=== PATIENT | female | born 1955 | race Caucasian/White ===

== ENCOUNTER 2021-01-14 18:54 | Inpatient (IN) ==
[2021-01-14 20:07] LABS: Basophils # 0.1 K/mcL (0.0-0.2); Basophils % 0.5 %; Eosinophils # 0.7 K/mcL (0.0-0.6); Eosinophils % 4.3 %; Hematocrit 29.3 % (35.3-44.9); Hemoglobin 9.4 g/dL (11.5-15.4); Immature Granulocytes % 0.6 % (0-4); Lymphocytes # 2.4 K/mcL (0.6-4.6); Lymphocytes % 15.6 %; Mean Corpuscular HGB Conc 32.1 g/dL (31.6-35.5); Mean Corpuscular Hemoglobin 30.1 pg (28.0-33.3); Mean Corpuscular Volume 93.9 fL (83.0-100.0); Mean Platelet Volume 10.7 fL (9.4-12.4); Monocytes # 1.1 K/mcL (0.0-1.3); Monocytes % 7.1 %; Platelet Count 153 K/mcL (140-400); Red Blood Count 3.12 M/mcL (3.82-4.97); Red Cell Distribution Width 13.9 % (11.5-14.5); Segmented Neutrophils % 71.9 %; White Blood Count 15.2 K/mcL (4.3-11.1)
[2021-01-14 20:32] LABS: Albumin 3.8 g/dL (3.5-5.7); Albumin/Globulin Ratio 1.1 (1.1-2.2); Bilirubin,Total 0.4 mg/dL (0.3-1.0); Calcium 9.3 mg/dL (8.6-10.3); Globulin 3.4 g/dL (2.4-3.5); Magnesium 2.4 mg/dL (1.6-2.6); Potassium 3.4 mEq/L (3.5-5.1); Total Protein 7.2 g/dL (6.4-8.9)
[2021-01-14 20:57] LABS: Bacteria,Urine Few per hpf (None-Few); Bilirubin,Urine Negative (Negative); Blood,Urine Trace (Negative); Clarity,Urine Turbid (Clear); Color,Urine Light-Yellow (Yellow); Glucose,Urine (UA) 70 mg/dL (Normal); Ketones,Urine Negative (Negative); Leukocyte Esterase,Urine Large (Negative); Mucus,Urine Few per lpf (None-Few); Nitrite,Urine Negative (Negative); Protein,Urine 30 mg/dL (Neg-Trace); Specific Gravity,Urine 1.012 (1.010-1.025); Squamous Epithelial Cell,Urine Few per hpf (None-Few); Urobilinogen,Urine Normal (Normal); WBC,Urine TNTC per hpf (0-3)
[2021-01-14] MEDS ORDERED: 0.9 % Sodium Chloride 1,000 ML IVC ONE (21:31)
[2021-01-14] MEDS ORDERED: cefTRIAXone 1,000 MG in Water for inj. (sterile) 10 ML IVP ONE (21:32)
[2021-01-14] MEDS ORDERED: Azithromycin 250 MG TABLET PO ONE (21:32)
[2021-01-14 21:51] LABS: Adenovirus Not Detected (Not Detect); Bordetella Pertussis Not Detected (Not Detect); Chlamydophila pneumoniae Not Detected (Not Detect); Coronavirus 229E Not Detected (Not Detect); Coronavirus HKU1 Not Detected (Not Detect); Coronavirus NL63 Not Detected (Not Detect); Coronavirus OC43 Not Detected (Not Detect); Human Metapneumovirus Not Detected (Not Detect); Human Rhinovirus/Enterovirus Not Detected (Not Detect); Influenza A Subtype 2009 H1 Not Detected (Not Detect); Influenza B Not Detected (Not Detect); Mycoplasma pneumoniae Not Detected (Not Detect); Parainfluenza Virus 1 Not Detected (Not Detect); Parainfluenza Virus 2 Not Detected (Not Detect); Parainfluenza Virus 3 Not Detected (Not Detect); Parainfluenza Virus 4 Not Detected (Not Detect); Respiratory Syncytial Virus Not Detected (Not Detect); SARS-CoV-2 Not Detected (Not Detect)
[2021-01-15] MEDS ORDERED: *HR* FentaNYL (PF) 100 MCG/2 ML VIAL IVP ONE (01:23)
[2021-01-15] MEDS ORDERED: Naloxone 0.4 MG/ML INJ IVP PRN (04:43)
[2021-01-15] MEDS ORDERED: Acetaminophen 325 MG TABLET PO PRN (04:54)
[2021-01-15] MEDS ORDERED: D5% in Water 1,000 ML IVC PRN (04:58)
[2021-01-15] MEDS ORDERED: *HR* Dextrose 50 % in Water (Vial) 50 ML VIAL IVP PRN (04:58)
[2021-01-15] MEDS ORDERED: Dextrose Gel 15 GM/37.5 ML TUBE PO PRN ×2 (04:58)
[2021-01-15] MEDS ORDERED: Perflutren Lipid Microsphere 1.3 ML in 0.9 % Sodium Chloride 8.7 ML IVP PRN (05:14)
[2021-01-15] MEDS: *HR* Heparin 5,000 UNIT/ML VIAL SQ SCH ×3 (06:15→21:44)
[2021-01-15] MEDS: Insulin LISPRO 300 UNITS/3 ML VIAL SUBQ SCH ×7 (07:32→20:37)
[2021-01-15] MEDS: Insulin DETEMIR 100 UNIT/ML X5UNITS SUBQ SCH (07:56)
[2021-01-15 08:11] LABS: Basophils # 0.1 K/mcL (0.0-0.2); Basophils % 0.5 %; Eosinophils # 0.7 K/mcL (0.0-0.6); Eosinophils % 4.8 %; Hemoglobin 8.8 g/dL (11.5-15.4); Immature Granulocytes % 0.6 % (0-4); Lymphocytes # 2.6 K/mcL (0.6-4.6); Lymphocytes % 18.7 %; Mean Corpuscular HGB Conc 31.4 g/dL (31.6-35.5); Mean Corpuscular Volume 95.6 fL (83.0-100.0); Mean Platelet Volume 10.5 fL (9.4-12.4); Neutrophils # 9.6 K/mcL (1.6-8.9); Platelet Count 144 K/mcL (140-400); Red Blood Count 2.93 M/mcL (3.82-4.97); Red Cell Distribution Width 14.1 % (11.5-14.5); Segmented Neutrophils % 68.4 %; White Blood Count 14.1 K/mcL (4.3-11.1)
[2021-01-15 08:29] LABS: Potassium 2.9 mEq/L (3.5-5.1)
[2021-01-15 08:30] LABS: Magnesium 2.4 mg/dL (1.6-2.6); Phosphorous 7.5 mg/dL (2.7-4.5)
[2021-01-15 11:14] LABS: Hepatitis B Surface Antibody 5.22 mIU/mL
[2021-01-15 11:25] LABS: Hepatitis B Surface Antigen Nonreactive (Nonreactive)
[2021-01-15 12:02] LABS: Protein/Creatinine Ratio,Urine 1.47 mg/mg (0.00-0.20); Sodium, Urine 66.8 mEq/L
[2021-01-15] MEDS ORDERED: 0.9 % Sodium Chloride 250 ML IVC PRN (12:46)
[2021-01-15] MEDS ORDERED: 0.9 % Sodium Chloride 1,000 ML PRIME SCH (13:00)
[2021-01-15] MEDS ORDERED: Potassium Chloride 40 MEQ, Lidocaine 1% 2 ML in 0.9 % Sodium Chloride 500 ML IVPB ONE (13:20)
[2021-01-15] MEDS ORDERED: Ipratropium/Albuterol Neb 3 ML IH PRN (15:16)
[2021-01-15] MEDS: carvediloL 25 MG TABLET PO SCH (17:30)
[2021-01-15 18:05] LABS: Calcium 8.9 mg/dL (8.6-10.3); Potassium 3.2 mEq/L (3.5-5.1)
[2021-01-15] MEDS ORDERED: Potassium Chloride 20 MEQ, Lidocaine 1% 2 ML in 0.9 % Sodium Chloride 250 ML IVPB ONE (19:34)
[2021-01-15] MEDS: cefTRIAXone 1,000 MG in Water for inj. (sterile) 10 ML IVP SCH (20:02)
[2021-01-15] MEDS ORDERED: Famotidine 20 MG TABLET PO SCH ×2 (21:00)
[2021-01-15] MEDS ORDERED: Gabapentin 300 MG CAPSULE PO SCH (21:00)
[2021-01-16 05:29] LABS: Hematocrit 27.4 % (35.3-44.9); Hemoglobin 8.4 g/dL (11.5-15.4); Mean Corpuscular HGB Conc 30.7 g/dL (31.6-35.5); Mean Corpuscular Hemoglobin 30.1 pg (28.0-33.3); Mean Corpuscular Volume 98.2 fL (83.0-100.0); Mean Platelet Volume 10.4 fL (9.4-12.4); Platelet Count 138 K/mcL (140-400); Red Blood Count 2.79 M/mcL (3.82-4.97); Red Cell Distribution Width 14.1 % (11.5-14.5)
[2021-01-16 05:40] LABS: Estimated Average Glucose 154 mg/dl
[2021-01-16 05:48] LABS: Calcium 8.6 mg/dL (8.6-10.3); Potassium 3.7 mEq/L (3.5-5.1)
[2021-01-16 05:50] LABS: Magnesium 2.3 mg/dL (1.6-2.6); Phosphorous 4.4 mg/dL (2.7-4.5)
[2021-01-16] MEDS: *HR* Heparin 5,000 UNIT/ML VIAL SQ SCH ×3 (05:53→21:25)
[2021-01-16] MEDS ORDERED: 0.9 % Sodium Chloride 250 ML IVC PRN (07:29)
[2021-01-16] MEDS ORDERED: *HR* Heparin 10,000 UNIT/10 ML VIAL IV PRN (07:29)
[2021-01-16] MEDS: Insulin DETEMIR 100 UNIT/ML X5UNITS SUBQ SCH ×3 (07:30→07:44)
[2021-01-16] MEDS ORDERED: 0.9 % Sodium Chloride 1,000 ML PRIME SCH (07:30)
[2021-01-16] MEDS: allopurinoL 300 MG TABLET PO SCH (07:35)
[2021-01-16] MEDS: Aspirin Enteric Coated 81 MG Tablet PO SCH (07:35)
[2021-01-16] MEDS: calcitrioL 0.25 MCG CAPSULE PO SCH (07:35)
[2021-01-16] MEDS: Cholecalciferol (D-3) 1,000 UNIT (25MCG) TABLET PO SCH (07:35)
[2021-01-16] MEDS: Insulin LISPRO 300 UNITS/3 ML VIAL SUBQ SCH ×7 (07:36→21:26)
[2021-01-16] MEDS: carvediloL 25 MG TABLET PO SCH ×2 (08:30→17:13)
[2021-01-16] MEDS ORDERED: Gabapentin 300 MG CAPSULE PO SCH (09:00)
[2021-01-16 09:32] LABS: Folate 9.6 ng/mL (3.0-16.0)
[2021-01-16] MEDS: NIFEdipine XL (24 HR) 30 MG TAB.ER.24 PO SCH (12:18)
[2021-01-16] MEDS ORDERED: Cyanocobalamin (B-12) 1,000 MCG/ML VIAL SQ ONE (16:10)
[2021-01-16] MEDS: Gabapentin 300 MG CAPSULE PO SCH (21:23)
[2021-01-16] MEDS: cefTRIAXone 1,000 MG in Water for inj. (sterile) 10 ML IVP SCH (21:24)
[2021-01-17] MEDS: *HR* Heparin 5,000 UNIT/ML VIAL SQ SCH ×3 (05:26→21:12)
[2021-01-17 06:06] LABS: Hematocrit 29.7 % (35.3-44.9); Hemoglobin 9.2 g/dL (11.5-15.4); Mean Corpuscular Hemoglobin 30.7 pg (28.0-33.3); Mean Platelet Volume 10.6 fL (9.4-12.4); Platelet Count 153 K/mcL (140-400); Red Cell Distribution Width 14.2 % (11.5-14.5); White Blood Count 12.5 K/mcL (4.3-11.1)
[2021-01-17 06:06] LABS: VBG HCO3 32 mEq/L (21-27); VBG PCO2 54 mmHg (41-51); VBG PH 7.38 pH Units (7.32-7.42); VBG PO2 85 mmHg (25-50)
[2021-01-17 06:31] LABS: Calcium 9.2 mg/dL (8.6-10.3); Magnesium 2.1 mg/dL (1.6-2.6); Phosphorous 4.3 mg/dL (2.7-4.5); Potassium 3.6 mEq/L (3.5-5.1)
[2021-01-17] MEDS ORDERED: 0.9 % Sodium Chloride 250 ML IVC PRN (08:15)
[2021-01-17] MEDS ORDERED: *HR* Heparin 10,000 UNIT/10 ML VIAL IV PRN (08:15)
[2021-01-17] MEDS: allopurinoL 300 MG TABLET PO SCH (08:47)
[2021-01-17] MEDS: calcitrioL 0.25 MCG CAPSULE PO SCH (08:47)
[2021-01-17] MEDS: Cyanocobalamin (B-12) 1,000 MCG TABLET PO SCH (08:47)
[2021-01-17] MEDS: Aspirin Enteric Coated 81 MG Tablet PO SCH (08:47)
[2021-01-17] MEDS: Insulin DETEMIR 100 UNIT/ML X5UNITS SUBQ SCH (08:48)
[2021-01-17] MEDS: Insulin LISPRO 300 UNITS/3 ML VIAL SUBQ SCH ×7 (08:48→21:03)
[2021-01-17] MEDS: Gabapentin 300 MG CAPSULE PO SCH ×2 (08:48→21:11)
[2021-01-17] MEDS: Cholecalciferol (D-3) 1,000 UNIT (25MCG) TABLET PO SCH (08:48)
[2021-01-17] MEDS: carvediloL 25 MG TABLET PO SCH ×2 (13:27→16:25)
[2021-01-17] MEDS ORDERED: Pantoprazole 40 MG VIAL IVP ONE (14:21)
[2021-01-17] MEDS: NIFEdipine XL (24 HR) 30 MG TAB.ER.24 PO SCH (14:47)
[2021-01-17] MEDS: Ondansetron 4 MG/2 ML VIAL IVP PRN (16:25)
[2021-01-17] MEDS: cefTRIAXone 1,000 MG in Water for inj. (sterile) 10 ML IVP SCH (21:11)
[2021-01-18] MEDS: Ondansetron 4 MG/2 ML VIAL IVP PRN ×2 (04:40→20:36)
[2021-01-18 05:13] LABS: Hematocrit 30.5 % (35.3-44.9); Hemoglobin 9.3 g/dL (11.5-15.4); Mean Corpuscular HGB Conc 30.5 g/dL (31.6-35.5); Mean Corpuscular Hemoglobin 29.8 pg (28.0-33.3); Mean Corpuscular Volume 97.8 fL (83.0-100.0); Mean Platelet Volume 10.3 fL (9.4-12.4); Platelet Count 145 K/mcL (140-400); Red Blood Count 3.12 M/mcL (3.82-4.97); Red Cell Distribution Width 13.9 % (11.5-14.5); White Blood Count 19.4 K/mcL (4.3-11.1)
[2021-01-18 05:50] LABS: Calcium 9.1 mg/dL (8.6-10.3); Magnesium 1.9 mg/dL (1.6-2.6); Potassium 3.5 mEq/L (3.5-5.1)
[2021-01-18] MEDS: *HR* Heparin 5,000 UNIT/ML VIAL SQ SCH ×3 (06:26→20:36)
[2021-01-18] MEDS: NIFEdipine XL (24 HR) 30 MG TAB.ER.24 PO SCH (08:23)
[2021-01-18] MEDS: Cyanocobalamin (B-12) 1,000 MCG TABLET PO SCH (08:23)
[2021-01-18] MEDS: Cholecalciferol (D-3) 1,000 UNIT (25MCG) TABLET PO SCH (08:23)
[2021-01-18] MEDS: Aspirin Enteric Coated 81 MG Tablet PO SCH (08:23)
[2021-01-18] MEDS: Lactobacillus 1 EACH CAP.SPRINK PO SCH ×2 (08:24→20:23)
[2021-01-18] MEDS: allopurinoL 300 MG TABLET PO SCH (08:24)
[2021-01-18] MEDS: Gabapentin 300 MG CAPSULE PO SCH ×2 (08:24→20:23)
[2021-01-18] MEDS: Insulin LISPRO 300 UNITS/3 ML VIAL SUBQ SCH ×7 (08:24→20:34)
[2021-01-18] MEDS: calcitrioL 0.25 MCG CAPSULE PO SCH (08:24)
[2021-01-18] MEDS: carvediloL 25 MG TABLET PO SCH ×2 (08:24→17:55)
[2021-01-18] MEDS: Insulin DETEMIR 100 UNIT/ML X5UNITS SUBQ SCH (08:30)
[2021-01-18] MEDS: Doxycycline 100 MG in 0.9 % Sodium Chloride Mini Bag 100 ML IVPB SCH ×2 (11:25→20:23)
[2021-01-18] MEDS: Piperacillin/Tazobactam 3.375 GM in 0.9 % Sodium Chloride Mini Bag 100 ML IVPB SCH ×2 (13:36→20:24)
[2021-01-18] MEDS ORDERED: Piperacillin/Tazobactam 3.375 GM in 0.9 % Sodium Chloride Mini Bag 100 ML IVPB SCH (16:00)
[2021-01-18] MEDS: D5% in 0.9% NACL 1,000 ML IVC SCH (17:54)
[2021-01-19] MEDS: *HR* Heparin 5,000 UNIT/ML VIAL SQ SCH ×3 (03:45→20:30)
[2021-01-19 04:05] LABS: Albumin 3.4 g/dL (3.5-5.7); Albumin/Globulin Ratio 1.1 (1.1-2.2); Bilirubin,Direct 0.1 mg/dL (0.0-0.2); Bilirubin,Indirect 0.3 mg/dL (0.0-1.0); Bilirubin,Total 0.4 mg/dL (0.3-1.0); Calcium 8.8 mg/dL (8.6-10.3); Magnesium 1.8 mg/dL (1.6-2.6); Potassium 3.4 mEq/L (3.5-5.1); Total Protein 6.4 g/dL (6.4-8.9)
[2021-01-19 04:16] LABS: Hematocrit 28.3 % (35.3-44.9); Hemoglobin 8.6 g/dL (11.5-15.4); Mean Corpuscular HGB Conc 30.4 g/dL (31.6-35.5); Mean Corpuscular Hemoglobin 29.7 pg (28.0-33.3); Mean Corpuscular Volume 97.6 fL (83.0-100.0); Mean Platelet Volume 10.6 fL (9.4-12.4); Platelet Count 130 K/mcL (140-400); Red Cell Distribution Width 13.8 % (11.5-14.5); White Blood Count 13.7 K/mcL (4.3-11.1)
[2021-01-19] MEDS ORDERED: Dexamethasone 4 MG/ML VIAL ONE (07:47)
[2021-01-19] MEDS ORDERED: Lidocaine -MPF 2% 2 ML VIAL ONE (07:47)
[2021-01-19] MEDS ORDERED: Lidocaine -MPF 4% 5 ML AMPUL ONE (07:47)
[2021-01-19] MEDS ORDERED: Ondansetron 4 MG/2 ML VIAL ONE (07:47)
[2021-01-19] MEDS ORDERED: *HR* FentaNYL (PF) 100 MCG/2 ML VIAL ONE (07:48)
[2021-01-19] MEDS ORDERED: *HR* Propofol 200 MG/20 ML VIAL IVP ONE (07:48)
[2021-01-19] MEDS ORDERED: *HR* PHENYLEPHRINE 1,000 MCG/10 ML SYRINGE IVP ONE (07:48)
[2021-01-19] MEDS: Insulin LISPRO 300 UNITS/3 ML VIAL SUBQ SCH ×7 (07:49→22:25)
[2021-01-19] MEDS: Insulin DETEMIR 100 UNIT/ML X5UNITS SUBQ SCH (07:52)
[2021-01-19] MEDS: Cyanocobalamin (B-12) 1,000 MCG TABLET PO SCH (08:23)
[2021-01-19] MEDS: Gabapentin 300 MG CAPSULE PO SCH ×2 (08:24→20:30)
[2021-01-19] MEDS: calcitrioL 0.25 MCG CAPSULE PO SCH (08:24)
[2021-01-19] MEDS: allopurinoL 300 MG TABLET PO SCH (09:00)
[2021-01-19] MEDS: D5% in 0.9% NACL 1,000 ML IVC SCH (09:00)
[2021-01-19] MEDS: NIFEdipine XL (24 HR) 30 MG TAB.ER.24 PO SCH (09:00)
[2021-01-19] MEDS: carvediloL 25 MG TABLET PO SCH ×2 (10:05→17:51)
[2021-01-19] MEDS: Lactobacillus 1 EACH CAP.SPRINK PO SCH ×2 (10:05→20:31)
[2021-01-19] MEDS: Doxycycline 100 MG in 0.9 % Sodium Chloride Mini Bag 100 ML IVPB SCH ×2 (10:38→20:32)
[2021-01-19] MEDS ORDERED: *HR* Metoprolol 5 MG/5 ML VIAL IVP ONE (11:02)
[2021-01-19] MEDS: Piperacillin/Tazobactam 3.375 GM in 0.9 % Sodium Chloride Mini Bag 100 ML IVPB SCH ×2 (11:45→22:28)
[2021-01-19] MEDS ORDERED: EPHEDrine 50 MG/ML VIAL ONE (13:51)
[2021-01-19] MEDS: Ondansetron 4 MG/2 ML VIAL IVP PRN (15:06)
[2021-01-19] MEDS ORDERED: Acetaminophen 325 MG TABLET PO PRN (15:27)
[2021-01-19] MEDS ORDERED: Naloxone 0.4 MG/ML INJ IVP PRN (15:27)
[2021-01-19] MEDS ORDERED: Dextrose Gel 15 GM/37.5 ML TUBE PO PRN ×2 (15:27)
[2021-01-19] MEDS ORDERED: 0.9 % Sodium Chloride 250 ML IVC PRN (15:27)
[2021-01-19] MEDS ORDERED: Ondansetron 4 MG/2 ML VIAL IVP PRN (15:27)
[2021-01-19] MEDS ORDERED: 0.9 % Sodium Chloride 1,000 ML PRIME SCH (15:27)
[2021-01-19] MEDS ORDERED: D5% in Water 1,000 ML IVC PRN (15:27)
[2021-01-19] MEDS ORDERED: Ipratropium/Albuterol Neb 3 ML IH PRN (15:27)
[2021-01-19] MEDS ORDERED: *HR* Dextrose 50 % in Water (Vial) 50 ML VIAL IVP PRN (15:27)
[2021-01-19] MEDS ORDERED: D5% in 0.9% NACL 1,000 ML IVC SCH (15:27)
[2021-01-19] MEDS ORDERED: *HR* Heparin 10,000 UNIT/10 ML VIAL IV PRN (15:27)
[2021-01-19] MEDS ORDERED: *HR* Promethazine 25 MG/ML VIAL IM ONE (15:34)
[2021-01-20 03:33] LABS: Hematocrit 27.8 % (35.3-44.9); Hemoglobin 8.5 g/dL (11.5-15.4); Mean Corpuscular HGB Conc 30.6 g/dL (31.6-35.5); Mean Corpuscular Hemoglobin 29.8 pg (28.0-33.3); Mean Corpuscular Volume 97.5 fL (83.0-100.0); Mean Platelet Volume 10.9 fL (9.4-12.4); Platelet Count 115 K/mcL (140-400); Red Blood Count 2.85 M/mcL (3.82-4.97); Red Cell Distribution Width 13.6 % (11.5-14.5)
[2021-01-20 03:56] LABS: Calcium 8.3 mg/dL (8.6-10.3); Magnesium 1.8 mg/dL (1.6-2.6); Phosphorous 5.8 mg/dL (2.7-4.5); Potassium 3.5 mEq/L (3.5-5.1)
[2021-01-20] MEDS: *HR* Heparin 5,000 UNIT/ML VIAL SQ SCH ×3 (05:02→21:21)
[2021-01-20] MEDS ORDERED: 0.9 % Sodium Chloride 250 ML IVC PRN (08:08)
[2021-01-20] MEDS ORDERED: 0.9 % Sodium Chloride 1,000 ML PRIME SCH (08:15)
[2021-01-20] MEDS ORDERED: D5% in Water 1,000 ML IVC PRN (08:17)
[2021-01-20] MEDS: Insulin LISPRO 300 UNITS/3 ML VIAL SUBQ SCH ×7 (08:52→20:59)
[2021-01-20] MEDS: Lactobacillus 1 EACH CAP.SPRINK PO SCH ×2 (08:54→21:21)
[2021-01-20] MEDS: Cyanocobalamin (B-12) 1,000 MCG TABLET PO SCH (08:54)
[2021-01-20] MEDS: NIFEdipine XL (24 HR) 30 MG TAB.ER.24 PO SCH (08:54)
[2021-01-20] MEDS: Gabapentin 300 MG CAPSULE PO SCH (08:54)
[2021-01-20] MEDS: calcitrioL 0.25 MCG CAPSULE PO SCH (08:55)
[2021-01-20] MEDS: carvediloL 25 MG TABLET PO SCH ×2 (08:55→17:31)
[2021-01-20] MEDS ORDERED: allopurinoL 300 MG TABLET PO SCH (09:00)
[2021-01-20] MEDS: Doxycycline 100 MG in 0.9 % Sodium Chloride Mini Bag 100 ML IVPB SCH ×2 (09:07→21:21)
[2021-01-20] MEDS: Insulin DETEMIR 100 UNIT/ML X5UNITS SUBQ SCH (09:10)
[2021-01-20] MEDS: Piperacillin/Tazobactam 3.375 GM in 0.9 % Sodium Chloride Mini Bag 100 ML IVPB SCH (10:48)
[2021-01-20] MEDS ORDERED: *HR* Promethazine 25 MG/ML VIAL IM ONE (14:57)
[2021-01-21] MEDS: Piperacillin/Tazobactam 3.375 GM in 0.9 % Sodium Chloride Mini Bag 100 ML IVPB SCH ×2 (00:19→10:45)
[2021-01-21 05:28] LABS: Hematocrit 25.7 % (35.3-44.9); Hemoglobin 8.1 g/dL (11.5-15.4); Mean Corpuscular HGB Conc 31.5 g/dL (31.6-35.5); Mean Corpuscular Hemoglobin 30.9 pg (28.0-33.3); Mean Corpuscular Volume 98.1 fL (83.0-100.0); Mean Platelet Volume 11.4 fL (9.4-12.4); Platelet Count 128 K/mcL (140-400); Red Blood Count 2.62 M/mcL (3.82-4.97); Red Cell Distribution Width 13.9 % (11.5-14.5); White Blood Count 12.5 K/mcL (4.3-11.1)
[2021-01-21 05:37] LABS: Calcium 8.4 mg/dL (8.6-10.3); Magnesium 1.8 mg/dL (1.6-2.6); Phosphorous 3.5 mg/dL (2.7-4.5); Potassium 3.2 mEq/L (3.5-5.1)
[2021-01-21] MEDS: *HR* Heparin 5,000 UNIT/ML VIAL SQ SCH ×2 (05:51→15:33)
[2021-01-21] MEDS ORDERED: Potassium Chloride 20 MEQ, Lidocaine 1% 2 ML in 0.9 % Sodium Chloride 250 ML IVPB ONE (07:17)
[2021-01-21] MEDS ORDERED: carvediloL 25 MG TABLET PO SCH (08:00)
[2021-01-21] MEDS: Insulin LISPRO 300 UNITS/3 ML VIAL SUBQ SCH ×4 (08:09→12:07)
[2021-01-21] MEDS: Insulin DETEMIR 100 UNIT/ML X5UNITS SUBQ SCH (08:10)
[2021-01-21] MEDS ORDERED: allopurinoL 100 MG TABLET PO SCH (09:00)
[2021-01-21] MEDS ORDERED: Gabapentin 300 MG CAPSULE PO SCH (09:00)
[2021-01-21] MEDS: Doxycycline 100 MG in 0.9 % Sodium Chloride Mini Bag 100 ML IVPB SCH (09:40)
[2021-01-21] MEDS: Cyanocobalamin (B-12) 1,000 MCG TABLET PO SCH (09:47)
[2021-01-21] MEDS: Lactobacillus 1 EACH CAP.SPRINK PO SCH (09:47)
[2021-01-21] MEDS: NIFEdipine XL (24 HR) 30 MG TAB.ER.24 PO SCH (09:47)
[2021-01-21] MEDS: calcitrioL 0.25 MCG CAPSULE PO SCH (09:47)
[2021-01-21 11:14] VITALS: BP 124/66
[2021-01-21] MEDS ORDERED: Insulin DETEMIR 100 UNIT/ML X5UNITS SUBQ SCH (21:00)
== END 2021-01-21 16:39 | disposition home health service (06) | DRG 951 ==
LOC: EMEROOARM 18:54 → 2ANU 18:54 → SUATTDRO 01-15 00:18 → 2ANU 01-15 01:45
PROVIDERS: ADMIT Internal Medicine; ATTEND Pharmacist

== ENCOUNTER 2021-02-09 22:52 | Observation (INO) ==
[2021-02-10] MEDS ORDERED: Naloxone 0.4 MG/ML INJ IVP PRN (03:07)
[2021-02-10] MEDS ORDERED: Melatonin 3 MG TABLET PO PRN (03:07)
[2021-02-10 05:10] LABS: Basophils # 0.1 K/mcL (0.0-0.2); Basophils % 0.6 %; Eosinophils # 0.4 K/mcL (0.0-0.6); Eosinophils % 4.1 %; Hematocrit 24.9 % (35.3-44.9); Hemoglobin 7.5 g/dL (11.5-15.4); Immature Granulocytes % 1.6 % (0-4); Lymphocytes # 1.8 K/mcL (0.6-4.6); Lymphocytes % 16.9 %; Mean Corpuscular HGB Conc 30.1 g/dL (31.6-35.5); Mean Corpuscular Hemoglobin 30.4 pg (28.0-33.3); Mean Corpuscular Volume 100.8 fL (83.0-100.0); Mean Platelet Volume 9.9 fL (9.4-12.4); Monocytes # 0.9 K/mcL (0.0-1.3); Monocytes % 8.9 %; Neutrophils # 7.1 K/mcL (1.6-8.9); Platelet Count 150 K/mcL (140-400); Red Blood Count 2.47 M/mcL (3.82-4.97); Red Cell Distribution Width 14.9 % (11.5-14.5); Segmented Neutrophils % 67.9 %; White Blood Count 10.4 K/mcL (4.3-11.1)
[2021-02-10 05:18] LABS: INR 1.2; Prothrombin Time 13.9 Seconds (9.4-12.1)
[2021-02-10 05:21] LABS: Activated Partial Thrombo Time 25.3 Seconds (26.0-36.0)
[2021-02-10 05:30] LABS: Alanine Aminotransferase 14 Units/L (7-52); Albumin 3.3 g/dL (3.5-5.7); Albumin/Globulin Ratio 1.2 (1.1-2.2); Alkaline Phosphatase 113 Units/L (34-104); Aspartate Amino Transferase 12 Units/L (13-39); BUN/Creatinine Ratio 5 (6-26); Bilirubin,Total 0.4 mg/dL (0.3-1.0); Blood Urea Nitrogen 15 mg/dL (8-23); Calcium 8.4 mg/dL (8.6-10.3); Carbon Dioxide 30 mEq/L (23-29); Chloride 99 mEq/L (98-107); Globulin 2.8 g/dL (2.4-3.5); Glucose 232 mg/dL (70-105); Magnesium 1.9 mg/dL (1.6-2.6); Osmolality,Calculated 292 (280-300); Phosphorous 3.5 mg/dL (2.7-4.5); Potassium 3.4 mEq/L (3.5-5.1); Sodium 137 mEq/L (136-145); Total Protein 6.1 g/dL (6.4-8.9); Troponin I < 0.03 ng/mL (< 0.04); eGFR For African Americans 17 (> 60); eGFR For Non-African Americans 14 (> 60)
[2021-02-10] MEDS ORDERED: *HR* Dextrose 50 % in Water (Vial) 50 ML VIAL IVP PRN (05:55)
[2021-02-10] MEDS ORDERED: Dextrose Gel 15 GM/37.5 ML TUBE PO PRN ×2 (05:55)
[2021-02-10] MEDS ORDERED: D5% in Water 1,000 ML IVC PRN (05:55)
[2021-02-10] MEDS ORDERED: Potassium Chloride 40 MEQ, Lidocaine 1% 2 ML in 0.9 % Sodium Chloride 500 ML IVPB ONE (06:00)
[2021-02-10] MEDS: Pantoprazole 40 MG VIAL IVP SCH ×2 (06:38→16:54)
[2021-02-10] MEDS ORDERED: 0.9 % Sodium Chloride 1,000 ML ONE (07:33)
[2021-02-10] MEDS: Insulin LISPRO 300 UNITS/3 ML VIAL SUBQ SCH ×3 (07:34→17:37)
[2021-02-10] MEDS ORDERED: 0.9 % Sodium Chloride 250 ML IVC PRN (08:52)
[2021-02-10] MEDS ORDERED: 0.9 % Sodium Chloride 1,000 ML PRIME SCH (09:00)
[2021-02-10] MEDS ORDERED: cefTRIAXone 1,000 MG in Water for inj. (sterile) 10 ML IVP SCH (09:00)
[2021-02-10 09:53] LABS: Hepatitis B Surface Antibody 3.35 mIU/mL
[2021-02-10 10:05] LABS: Hepatitis B Surface Antigen Nonreactive (Nonreactive)
[2021-02-10] MEDS: Ondansetron 4 MG/2 ML VIAL IVP PRN ×2 (12:42→21:23)
[2021-02-10] MEDS ORDERED: SODIUM CHLORIDE/NAHCO3/KCL/PEG 4,000 ML SOLN.RECON PO ONE (17:00)
[2021-02-11] MEDS ORDERED: *HR* Propofol 500 MG/50 ML BOTTLE IVP ONE (01:09)
[2021-02-11] MEDS ORDERED: Lidocaine -MPF 2% 5 ML VIAL SQ ONE (01:09)
[2021-02-11] MEDS: Insulin LISPRO 300 UNITS/3 ML VIAL SUBQ SCH ×5 (05:43→20:39)
[2021-02-11] MEDS: Pantoprazole 40 MG VIAL IVP SCH ×2 (05:47→17:52)
[2021-02-11 06:27] LABS: Hematocrit 26.6 % (35.3-44.9); Hemoglobin 7.9 g/dL (11.5-15.4); Mean Corpuscular HGB Conc 29.7 g/dL (31.6-35.5); Mean Corpuscular Hemoglobin 29.8 pg (28.0-33.3); Mean Corpuscular Volume 100.4 fL (83.0-100.0); Platelet Count 141 K/mcL (140-400); Red Blood Count 2.65 M/mcL (3.82-4.97); Red Cell Distribution Width 14.7 % (11.5-14.5); White Blood Count 10.6 K/mcL (4.3-11.1)
[2021-02-11 06:49] LABS: Calcium 8.6 mg/dL (8.6-10.3); Potassium 4.1 mEq/L (3.5-5.1)
[2021-02-11] MEDS: cefTRIAXone 1,000 MG in Water for inj. (sterile) 10 ML IVP SCH (15:12)
[2021-02-11] MEDS: Ondansetron 4 MG/2 ML VIAL IVP PRN (20:33)
[2021-02-11] MEDS: Insulin DETEMIR 100 UNIT/ML X5UNITS SUBQ SCH (20:34)
[2021-02-11] MEDS: carvediloL 6.25 MG TABLET PO SCH (20:39)
[2021-02-12 00:52] LABS: Basophils # 0.1 K/mcL (0.0-0.2); Basophils % 0.6 %; Eosinophils # 0.5 K/mcL (0.0-0.6); Eosinophils % 4.1 %; Hematocrit 26.9 % (35.3-44.9); Hemoglobin 8.2 g/dL (11.5-15.4); Immature Granulocytes % 0.9 % (0-4); Lymphocytes % 17.8 %; Mean Corpuscular HGB Conc 30.5 g/dL (31.6-35.5); Mean Corpuscular Hemoglobin 30.7 pg (28.0-33.3); Mean Corpuscular Volume 100.7 fL (83.0-100.0); Mean Platelet Volume 10.4 fL (9.4-12.4); Monocytes % 8.6 %; Neutrophils # 7.5 K/mcL (1.6-8.9); Platelet Count 131 K/mcL (140-400); Red Blood Count 2.67 M/mcL (3.82-4.97); Red Cell Distribution Width 14.6 % (11.5-14.5); White Blood Count 11.1 K/mcL (4.3-11.1)
[2021-02-12 01:05] LABS: Calcium 8.6 mg/dL (8.6-10.3); Potassium 3.4 mEq/L (3.5-5.1)
[2021-02-12] MEDS: Pantoprazole 40 MG VIAL IVP SCH (05:12)
[2021-02-12] MEDS: Ondansetron 4 MG/2 ML VIAL IVP PRN ×2 (05:13→14:27)
[2021-02-12] MEDS: Insulin LISPRO 300 UNITS/3 ML VIAL SUBQ SCH ×3 (08:10→20:09)
[2021-02-12] MEDS: calcitrioL 0.25 MCG CAPSULE PO SCH (08:11)
[2021-02-12] MEDS: Gabapentin 300 MG CAPSULE PO SCH (08:11)
[2021-02-12] MEDS: allopurinoL 100 MG TABLET PO SCH (08:11)
[2021-02-12] MEDS: Cholecalciferol (D-3) 1,000 UNIT (25MCG) TABLET PO SCH (08:11)
[2021-02-12] MEDS: Aspirin Enteric Coated 81 MG Tablet PO SCH (08:11)
[2021-02-12] MEDS: carvediloL 6.25 MG TABLET PO SCH (08:12)
[2021-02-12] MEDS: NIFEdipine XL (24 HR) 30 MG TAB.ER.24 PO SCH (08:12)
[2021-02-12] MEDS ORDERED: Tiotropium 10 INH DOSE IH SCH (09:00)
[2021-02-12] MEDS: Tiotropium 10 INH DOSE IH SCH (10:52)
[2021-02-12] MEDS: cefTRIAXone 1,000 MG in Water for inj. (sterile) 10 ML IVP SCH (14:26)
[2021-02-12] MEDS ORDERED: Bismuth Subsalicylate 120 ML ORAL SUSPENSION PO ONE (19:57)
[2021-02-12] MEDS: Insulin DETEMIR 100 UNIT/ML X5UNITS SUBQ SCH (20:10)
[2021-02-13 01:32] LABS: Hematocrit 23.9 % (35.3-44.9); Hemoglobin 7.2 g/dL (11.5-15.4); Mean Corpuscular HGB Conc 30.1 g/dL (31.6-35.5); Mean Corpuscular Hemoglobin 30.3 pg (28.0-33.3); Mean Corpuscular Volume 100.4 fL (83.0-100.0); Mean Platelet Volume 10.8 fL (9.4-12.4); Platelet Count 112 K/mcL (140-400); Red Blood Count 2.38 M/mcL (3.82-4.97); Red Cell Distribution Width 14.6 % (11.5-14.5); White Blood Count 10.8 K/mcL (4.3-11.1)
[2021-02-13 01:56] LABS: Calcium 8.3 mg/dL (8.6-10.3); Potassium 3.4 mEq/L (3.5-5.1)
[2021-02-13] MEDS: Pantoprazole 40 MG VIAL IVP SCH ×2 (04:28→16:47)
[2021-02-13] MEDS: Tiotropium 10 INH DOSE IH SCH (07:43)
[2021-02-13] MEDS: Insulin LISPRO 300 UNITS/3 ML VIAL SUBQ SCH ×3 (09:02→16:46)
[2021-02-13] MEDS: carvediloL 6.25 MG TABLET PO SCH ×2 (09:03→16:47)
[2021-02-13] MEDS: calcitrioL 0.25 MCG CAPSULE PO SCH (09:03)
[2021-02-13] MEDS: allopurinoL 100 MG TABLET PO SCH (09:03)
[2021-02-13] MEDS: NIFEdipine XL (24 HR) 30 MG TAB.ER.24 PO SCH (09:03)
[2021-02-13] MEDS: Cholecalciferol (D-3) 1,000 UNIT (25MCG) TABLET PO SCH (09:03)
[2021-02-13] MEDS: Gabapentin 300 MG CAPSULE PO SCH (09:03)
[2021-02-13] MEDS: Aspirin Enteric Coated 81 MG Tablet PO SCH (09:03)
[2021-02-13 15:20] VITALS: BP 110/51
== END 2021-02-13 19:32 | disposition home health service (06) ==
LOC: 2ANU → SUATTDRO 02-10 01:08
PROVIDERS: ADMIT Internal Medicine; ATTEND General Practice

== ENCOUNTER 2021-05-16 12:01 | Inpatient (IN) ==
[2021-05-16] MEDS ORDERED: 0.9 % Sodium Chloride 500 ML ONE (14:19)
[2021-05-16] MEDS ORDERED: Heparin 1,000 UNITS/500 mL 500 ML ONE (14:19)
[2021-05-16 14:29] LABS: Basophils # 0.1 K/mcL (0.0-0.2); Basophils % 0.8 %; Eosinophils # 0.6 K/mcL (0.0-0.6); Eosinophils % 4.3 %; Hematocrit 38.2 % (35.3-44.9); Immature Granulocytes % 1.2 % (0-4); Lymphocytes # 2.1 K/mcL (0.6-4.6); Lymphocytes % 14.9 %; Mean Corpuscular HGB Conc 31.4 g/dL (31.6-35.5); Mean Corpuscular Hemoglobin 28.8 pg (28.0-33.3); Mean Corpuscular Volume 91.6 fL (83.0-100.0); Mean Platelet Volume 10.8 fL (9.4-12.4); Neutrophils # 10.2 K/mcL (1.6-8.9); Platelet Count 142 K/mcL (140-400); Red Blood Count 4.17 M/mcL (3.82-4.97); Red Cell Distribution Width 14.9 % (11.5-14.5); Segmented Neutrophils % 71.8 %; White Blood Count 14.3 K/mcL (4.3-11.1)
[2021-05-16 14:32] LABS: Prothrombin Time 11.8 Seconds (9.4-12.1)
[2021-05-16 14:35] LABS: Activated Partial Thrombo Time 25.8 Seconds (26.0-36.0)
[2021-05-16] MEDS ORDERED: 0.9 % Sodium Chloride 250 ML IVC PRN ×2 (15:04→15:29)
[2021-05-16 15:14] LABS: Calcium 10.1 mg/dL (8.6-10.3); Potassium 3.8 mEq/L (3.5-5.1)
[2021-05-16] MEDS ORDERED: 0.9 % Sodium Chloride 1,000 ML PRIME SCH (15:15)
[2021-05-16] MEDS ORDERED: *HR* Heparin 5,000 UNIT/ML VIAL ONE (15:39)
[2021-05-16 15:43] LABS: Hepatitis B Surface Antibody 14.71 mIU/mL
[2021-05-16] MEDS ORDERED: Iopamidol 100 ML in 0.9 % Sodium Chloride 50 ML IVP ONE (15:49)
[2021-05-16 15:53] LABS: Hepatitis B Surface Antigen Nonreactive (Nonreactive)
[2021-05-16] MEDS ORDERED: Ondansetron 4 MG/2 ML VIAL IVP ONE (17:02)
[2021-05-16] MEDS ORDERED: Acetaminophen 325 MG TABLET PO PRN (18:06)
[2021-05-16] MEDS ORDERED: Naloxone 0.4 MG/ML INJ IVP PRN (18:06)
[2021-05-16] MEDS ORDERED: Dextrose Gel 15 GM/37.5 ML TUBE PO PRN ×2 (18:06)
[2021-05-16] MEDS ORDERED: D5% in Water 1,000 ML IVC PRN (18:06)
[2021-05-16] MEDS ORDERED: *HR* Dextrose 50 % in Water (Vial) 50 ML VIAL IVP PRN (18:06)
[2021-05-16] MEDS ORDERED: Ondansetron 4 MG/2 ML VIAL IVP PRN (18:06)
[2021-05-16] MEDS: Insulin DETEMIR 100 UNIT/ML X5UNITS SUBQ SCH (20:26)
[2021-05-17] MEDS ORDERED: *HR* Heparin 10,000 UNIT/10 ML VIAL IV PRN (00:01)
[2021-05-17 05:18] LABS: Hematocrit 28.5 % (35.3-44.9); Immature Granulocytes % 0.9 % (0-4); Mean Corpuscular HGB Conc 32.3 g/dL (31.6-35.5); Mean Corpuscular Hemoglobin 29.6 pg (28.0-33.3); Mean Corpuscular Volume 91.6 fL (83.0-100.0); Mean Platelet Volume 10.3 fL (9.4-12.4); Monocytes % 8.3 %; Platelet Count 126 K/mcL (140-400); Red Blood Count 3.11 M/mcL (3.82-4.97); Red Cell Distribution Width 15.1 % (11.5-14.5); Segmented Neutrophils % 69.3 %; White Blood Count 14.2 K/mcL (4.3-11.1)
[2021-05-17 05:19] LABS: Basophils # 0.1 K/mcL (0.0-0.2); Basophils % 0.4 %; Eosinophils # 0.4 K/mcL (0.0-0.6); Eosinophils % 3.1 %; Hemoglobin 9.2 g/dL (11.5-15.4); Lymphocytes # 2.6 K/mcL (0.6-4.6); Monocytes # 1.2 K/mcL (0.0-1.3); Neutrophils # 9.8 K/mcL (1.6-8.9)
[2021-05-17 05:33] LABS: Calcium 9.3 mg/dL (8.6-10.3)
[2021-05-17] MEDS: *HR* Heparin 5,000 UNIT/ML VIAL SQ SCH ×2 (05:43→16:06)
[2021-05-17] MEDS: Insulin LISPRO 300 UNITS/3 ML VIAL SUBQ SCH ×3 (08:20→16:37)
[2021-05-17] MEDS: Gabapentin 300 MG CAPSULE PO SCH (16:05)
[2021-05-17] MEDS: Insulin DETEMIR 100 UNIT/ML X5UNITS SUBQ SCH (20:46)
[2021-05-17] MEDS: Lactobacillus 1 EACH CAP.SPRINK PO SCH (20:46)
[2021-05-17] MEDS: carvediloL 6.25 MG TABLET PO SCH (20:50)
[2021-05-18 05:01] LABS: Basophils # 0.1 K/mcL (0.0-0.2); Basophils % 0.6 %; Eosinophils # 0.6 K/mcL (0.0-0.6); Eosinophils % 4.7 %; Hematocrit 30.2 % (35.3-44.9); Hemoglobin 9.5 g/dL (11.5-15.4); Immature Granulocytes % 1.3 % (0-4); Lymphocytes # 3.6 K/mcL (0.6-4.6); Mean Corpuscular HGB Conc 31.5 g/dL (31.6-35.5); Mean Corpuscular Hemoglobin 29.1 pg (28.0-33.3); Mean Corpuscular Volume 92.4 fL (83.0-100.0); Mean Platelet Volume 10.9 fL (9.4-12.4); Monocytes # 1.3 K/mcL (0.0-1.3); Monocytes % 10.2 %; Platelet Count 122 K/mcL (140-400); Red Blood Count 3.27 M/mcL (3.82-4.97); Red Cell Distribution Width 15.1 % (11.5-14.5); Segmented Neutrophils % 55.2 %; White Blood Count 12.7 K/mcL (4.3-11.1)
[2021-05-18 05:26] LABS: Calcium 8.8 mg/dL (8.6-10.3); Phosphorous 3.2 mg/dL (2.7-4.5); Potassium 3.9 mEq/L (3.5-5.1)
[2021-05-18] MEDS: *HR* Heparin 5,000 UNIT/ML VIAL SQ SCH ×2 (06:11→16:28)
[2021-05-18] MEDS: Insulin LISPRO 300 UNITS/3 ML VIAL SUBQ SCH ×3 (08:17→16:27)
[2021-05-18] MEDS: Cyanocobalamin (B-12) 1,000 MCG TABLET PO SCH (08:18)
[2021-05-18] MEDS: NIFEdipine XL (24 HR) 30 MG TAB.ER.24 PO SCH (08:18)
[2021-05-18] MEDS: Cholecalciferol (D-3) 1,000 UNIT (25MCG) TABLET PO SCH (08:18)
[2021-05-18] MEDS: Lactobacillus 1 EACH CAP.SPRINK PO SCH ×2 (08:18→19:34)
[2021-05-18] MEDS: calcitrioL 0.25 MCG CAPSULE PO SCH (08:18)
[2021-05-18] MEDS: Gabapentin 300 MG CAPSULE PO SCH ×2 (08:19→16:27)
[2021-05-18] MEDS: carvediloL 6.25 MG TABLET PO SCH ×2 (08:19→16:27)
[2021-05-18] MEDS: allopurinoL 100 MG TABLET PO SCH (08:19)
[2021-05-19] MEDS: Insulin DETEMIR 100 UNIT/ML X5UNITS SUBQ SCH (04:04)
[2021-05-19] MEDS: *HR* Heparin 5,000 UNIT/ML VIAL SQ SCH (04:15)
[2021-05-19 07:16] VITALS: PULSE 74; O2SAT 100
[2021-05-19] MEDS ORDERED: 0.9 % Sodium Chloride 250 ML IVC PRN (07:36)
[2021-05-19] MEDS ORDERED: *HR* Heparin 10,000 UNIT/10 ML VIAL IV PRN (07:36)
[2021-05-19] MEDS: Insulin LISPRO 300 UNITS/3 ML VIAL SUBQ SCH ×2 (07:42→11:40)
[2021-05-19] MEDS: Gabapentin 300 MG CAPSULE PO SCH (07:43)
[2021-05-19] MEDS: Cholecalciferol (D-3) 1,000 UNIT (25MCG) TABLET PO SCH (07:43)
[2021-05-19] MEDS: calcitrioL 0.25 MCG CAPSULE PO SCH (07:43)
[2021-05-19] MEDS: Cyanocobalamin (B-12) 1,000 MCG TABLET PO SCH (07:43)
[2021-05-19] MEDS: allopurinoL 100 MG TABLET PO SCH (07:43)
[2021-05-19] MEDS: Lactobacillus 1 EACH CAP.SPRINK PO SCH (07:48)
[2021-05-19 08:35] LABS: Basophils % 0.4 %; Eosinophils # 0.5 K/mcL (0.0-0.6); Eosinophils % 4.6 %; Hematocrit 28.6 % (35.3-44.9); Hemoglobin 9.2 g/dL (11.5-15.4); Immature Platelets 4.9 % (1.1-6.1); Lymphocytes # 1.7 K/mcL (0.6-4.6); Lymphocytes % 17.6 %; Mean Corpuscular HGB Conc 32.2 g/dL (31.6-35.5); Mean Corpuscular Volume 90.2 fL (83.0-100.0); Mean Platelet Volume 10.8 fL (9.4-12.4); Monocytes # 0.4 K/mcL (0.0-1.3); Monocytes % 4.3 %; Platelet Count 106 K/mcL (140-400); Red Blood Count 3.17 M/mcL (3.82-4.97); Red Cell Distribution Width 14.5 % (11.5-14.5); Segmented Neutrophils % 72.1 %; White Blood Count 9.7 K/mcL (4.3-11.1)
[2021-05-19 08:53] LABS: Calcium 8.8 mg/dL (8.6-10.3); Potassium 3.7 mEq/L (3.5-5.1)
[2021-05-19 11:36] LABS: Adenovirus Not Detected (Not Detect); Bordetella Pertussis Not Detected (Not Detect); Chlamydophila pneumoniae Not Detected (Not Detect); Coronavirus 229E Not Detected (Not Detect); Coronavirus HKU1 Not Detected (Not Detect); Coronavirus NL63 Not Detected (Not Detect); Coronavirus OC43 Not Detected (Not Detect); Human Metapneumovirus Not Detected (Not Detect); Human Rhinovirus/Enterovirus Not Detected (Not Detect); Influenza A Subtype 2009 H1 Not Detected (Not Detect); Influenza B Not Detected (Not Detect); Mycoplasma pneumoniae Not Detected (Not Detect); Parainfluenza Virus 1 Not Detected (Not Detect); Parainfluenza Virus 2 Not Detected (Not Detect); Parainfluenza Virus 3 Not Detected (Not Detect); Parainfluenza Virus 4 Not Detected (Not Detect); Respiratory Syncytial Virus Not Detected (Not Detect)
[2021-05-19 11:37] LABS: SARS-CoV-2 Not Detected (Not Detect)
[2021-05-19] MEDS: NIFEdipine XL (24 HR) 30 MG TAB.ER.24 PO SCH (11:37)
[2021-05-19] MEDS: carvediloL 6.25 MG TABLET PO SCH (11:37)
[2021-05-19 12:25] VITALS: BP 102/63; TEMP 97.6
== END 2021-05-19 13:53 | disposition short-term general hospital (02) | DRG 182 ==
LOC: 2ANU 12:01 → EMEROOARM 12:01 → SUATTDRO 18:09 → 2ANU 18:56 → SUATTDRO 05-18 20:44
PROVIDERS: ADMIT Internal Medicine; ATTEND Family Medicine

== ENCOUNTER 2021-10-23 18:37 | Inpatient (IN) ==
[2021-10-23] MEDS ORDERED: *HR* Heparin 5,000 UNIT/ML VIAL IVP PRN ×2 (21:48)
[2021-10-23] MEDS ORDERED: *HR* Heparin 5,000 UNIT/ML VIAL IVP ONE (21:48)
[2021-10-23 21:49] LABS: Basophils # 0.1 K/mcL (0.0-0.2); Basophils % 0.6 %; Eosinophils # 0.5 K/mcL (0.0-0.6); Eosinophils % 3.5 %; Hematocrit 31.2 % (35.3-44.9); Hemoglobin 9.8 g/dL (11.5-15.4); Immature Granulocytes % 2.1 % (0-4); Lymphocytes # 2.5 K/mcL (0.6-4.6); Mean Corpuscular HGB Conc 31.4 g/dL (31.6-35.5); Mean Corpuscular Hemoglobin 30.4 pg (28.0-33.3); Mean Corpuscular Volume 96.9 fL (83.0-100.0); Mean Platelet Volume 10.6 fL (9.4-12.4); Monocytes # 0.9 K/mcL (0.0-1.3); Monocytes % 5.8 %; Neutrophils # 11.3 K/mcL (1.6-8.9); Nucleated Red Blood Cells 0.1 /100 WBC (0); Platelet Count 147 K/mcL (140-400); Red Blood Count 3.22 M/mcL (3.82-4.97); Red Cell Distribution Width 14.6 % (11.5-14.5); White Blood Count 15.6 K/mcL (4.3-11.1)
[2021-10-23] MEDS ORDERED: Heparin 25,000UNIT/250ML 1/2NS 25,000 UNIT/250 ML IV.SOLN IVC SCH (22:00)
[2021-10-23] MEDS: Nitroglycerin 0.4 MG TAB.SUBL SL PRN ×2 (22:12→22:53)
[2021-10-23] MEDS: Aspirin 325 MG TABLET PO ONE ×2 (22:12→22:26)
[2021-10-23 22:13] LABS: Calcium 8.5 mg/dL (8.6-10.3); Potassium 3.6 mEq/L (3.5-5.1)
[2021-10-23 22:18] LABS: Troponin I 0.04 ng/mL (< 0.04)
[2021-10-24] MEDS ORDERED: Dextrose Gel 15 GM/37.5 ML TUBE PO PRN ×2 (00:03)
[2021-10-24] MEDS ORDERED: *HR* Dextrose 50 % in Water (Syg) 50 ML SYRINGE IVP PRN (00:03)
[2021-10-24] MEDS ORDERED: D5% in Water 1,000 ML IVC PRN (00:03)
[2021-10-24] MEDS ORDERED: Melatonin 3 MG TABLET PO PRN (00:24)
[2021-10-24] MEDS ORDERED: Naloxone 0.4 MG/ML INJ IVP PRN (00:24)
[2021-10-24 01:20] LABS: Influenza A PCR Negative (Negative); Influenza B PCR Negative (Negative); Resp. Syncytial Virus PCR Negative (Negative)
[2021-10-24 01:24] LABS: SARS-CoV-2 by PCR (In House) Negative (Negative)
[2021-10-24] MEDS: Insulin DETEMIR 100 UNIT/ML X5UNITS SUBQ SCH ×3 (05:00→22:13)
[2021-10-24 06:10] LABS: Hematocrit 30.1 % (35.3-44.9); Hemoglobin 9.3 g/dL (11.5-15.4); Mean Corpuscular HGB Conc 30.9 g/dL (31.6-35.5); Mean Corpuscular Volume 97.1 fL (83.0-100.0); Mean Platelet Volume 10.5 fL (9.4-12.4); Platelet Count 137 K/mcL (140-400); Red Cell Distribution Width 14.7 % (11.5-14.5); White Blood Count 13.9 K/mcL (4.3-11.1)
[2021-10-24 06:19] LABS: INR 1.1
[2021-10-24 06:28] LABS: Albumin 3.3 g/dL (3.5-5.7); Bilirubin,Total 0.3 mg/dL (0.3-1.0); Calcium 8.5 mg/dL (8.6-10.3); Globulin 3.2 g/dL (2.4-3.5); Phosphorous 4.6 mg/dL (2.7-4.5); Potassium 3.3 mEq/L (3.5-5.1); Total Protein 6.5 g/dL (6.4-8.9); Troponin I 0.03 ng/mL (< 0.04)
[2021-10-24] MEDS: Insulin LISPRO 300 UNITS/3 ML VIAL SUBQ SCH ×4 (06:57→23:35)
[2021-10-24] MEDS: carvediloL 6.25 MG TABLET PO SCH ×3 (07:49→22:10)
[2021-10-24] MEDS: Lactobacillus 1 EACH CAP.SPRINK PO SCH ×2 (07:49→22:09)
[2021-10-24] MEDS: Cyanocobalamin (B-12) 1,000 MCG TABLET PO SCH (07:50)
[2021-10-24] MEDS ORDERED: Nitroglycerin 1,000 MCG/5 ML VIAL IV ONE (12:48)
[2021-10-24] MEDS ORDERED: Heparin 1,000 UNITS/500 mL 500 ML ONE (12:48)
[2021-10-24] MEDS ORDERED: ISOVUE-370 200 ML INFUS..BTL ONE ×2 (12:48→14:00)
[2021-10-24] MEDS ORDERED: *HR* Heparin 10,000 UNIT/10 ML VIAL ONE (12:48)
[2021-10-24] MEDS ORDERED: 0.9 % Sodium Chloride 2,000 ML ONE (12:48)
[2021-10-24] MEDS ORDERED: *HR* Midazolam HCl 2 MG/2 ML VIAL ONE (13:22)
[2021-10-24] MEDS ORDERED: *HR* FentaNYL (PF) 100 MCG/2 ML VIAL ONE (13:22)
[2021-10-24] MEDS ORDERED: *HR* Bivalirudin 250 MG VIAL IVC ONE (14:06)
[2021-10-24] MEDS ORDERED: Ondansetron 4 MG/2 ML VIAL ONE (14:18)
[2021-10-24] MEDS ORDERED: *HR* Ticagrelor 90 MG TABLET ONE (14:26)
[2021-10-24] MEDS: *HR* Ticagrelor 90 MG TABLET PO SCH (22:09)
[2021-10-25 02:22] LABS: Basophils # 0.1 K/mcL (0.0-0.2); Basophils % 0.6 %; Eosinophils # 0.2 K/mcL (0.0-0.6); Eosinophils % 1.3 %; Hemoglobin 10.1 g/dL (11.5-15.4); Immature Granulocytes % 1.7 % (0-4); Lymphocytes # 1.9 K/mcL (0.6-4.6); Mean Corpuscular HGB Conc 31.6 g/dL (31.6-35.5); Mean Corpuscular Hemoglobin 30.9 pg (28.0-33.3); Mean Corpuscular Volume 97.9 fL (83.0-100.0); Mean Platelet Volume 10.7 fL (9.4-12.4); Monocytes # 0.9 K/mcL (0.0-1.3); Monocytes % 5.5 %; Neutrophils # 12.3 K/mcL (1.6-8.9); Platelet Count 156 K/mcL (140-400); Red Blood Count 3.27 M/mcL (3.82-4.97); Red Cell Distribution Width 14.8 % (11.5-14.5); Segmented Neutrophils % 78.9 %; White Blood Count 15.5 K/mcL (4.3-11.1)
[2021-10-25 02:31] LABS: Calcium 8.8 mg/dL (8.6-10.3)
[2021-10-25] MEDS ORDERED: Acetaminophen 325 MG TABLET PO ONE (03:25)
[2021-10-25] MEDS ORDERED: Ondansetron 4 MG/2 ML VIAL IVP ONE (04:33)
[2021-10-25] MEDS: Cyanocobalamin (B-12) 1,000 MCG TABLET PO SCH (07:47)
[2021-10-25] MEDS: *HR* Ticagrelor 90 MG TABLET PO SCH ×2 (07:48→20:26)
[2021-10-25] MEDS: carvediloL 6.25 MG TABLET PO SCH ×2 (07:48→17:23)
[2021-10-25] MEDS: Lactobacillus 1 EACH CAP.SPRINK PO SCH ×2 (07:48→20:26)
[2021-10-25] MEDS: Aspirin Enteric Coated 81 MG Tablet PO SCH (07:50)
[2021-10-25] MEDS: Insulin DETEMIR 100 UNIT/ML X5UNITS SUBQ SCH ×2 (07:50→21:45)
[2021-10-25] MEDS: Insulin LISPRO 300 UNITS/3 ML VIAL SUBQ SCH ×4 (07:51→21:46)
[2021-10-25 08:42] LABS: Bacteria,Urine Few per hpf (None-Few); Bilirubin,Urine Negative (Negative); Blood,Urine Large (Negative); Clarity,Urine Clear (Clear); Color,Urine Light-Yellow (Yellow); Glucose,Urine (UA) 200 mg/dL (Normal); Ketones,Urine Negative (Negative); Leukocyte Esterase,Urine Large (Negative); Mucus,Urine Few per lpf (None-Few); Nitrite,Urine Negative (Negative); PH,Urine 5.5 pH Units (5.0-8.0); Protein,Urine 30 mg/dL (Neg-Trace); RBC,Urine 50-100 per hpf (0-3); Specific Gravity,Urine > 1.030 (1.010-1.025); Squamous Epithelial Cell,Urine Few per hpf (None-Few); Urobilinogen,Urine Normal (Normal); WBC,Urine TNTC per hpf (0-3)
[2021-10-25] MEDS: Ondansetron 4 MG/2 ML VIAL IVP PRN ×2 (15:00→21:52)
[2021-10-25] MEDS ORDERED: NIFEdipine XL (24 HR) 30 MG TAB.ER.24 PO SCH (15:30)
[2021-10-25] MEDS: *HR* Heparin 5,000 UNIT/ML VIAL SQ SCH (17:22)
[2021-10-25] MEDS: amLODIPine 5 MG TABLET PO SCH (17:25)
[2021-10-25] MEDS: cefTRIAXone 1,000 MG in 0.9 % Sodium Chloride Mini Bag 100 ML IVP SCH (17:43)
[2021-10-25] MEDS ORDERED: Ondansetron 4 MG/2 ML VIAL IVP SCH (18:00)
[2021-10-25] MEDS: Gabapentin 300 MG CAPSULE PO SCH (20:25)
[2021-10-25] MEDS ORDERED: carvediloL 25 MG TABLET PO SCH (21:00)
[2021-10-26] MEDS: Ondansetron 4 MG/2 ML VIAL IVP PRN ×2 (04:02→12:21)
[2021-10-26 04:38] LABS: Hematocrit 29.4 % (35.3-44.9); Hemoglobin 9.3 g/dL (11.5-15.4); Mean Corpuscular HGB Conc 31.6 g/dL (31.6-35.5); Mean Corpuscular Hemoglobin 31.1 pg (28.0-33.3); Mean Corpuscular Volume 98.3 fL (83.0-100.0); Mean Platelet Volume 10.2 fL (9.4-12.4); Platelet Count 138 K/mcL (140-400); Red Blood Count 2.99 M/mcL (3.82-4.97); Red Cell Distribution Width 15.2 % (11.5-14.5); White Blood Count 16.6 K/mcL (4.3-11.1)
[2021-10-26 04:56] LABS: Calcium 8.7 mg/dL (8.6-10.3); Potassium 3.5 mEq/L (3.5-5.1)
[2021-10-26] MEDS: *HR* Heparin 5,000 UNIT/ML VIAL SQ SCH ×2 (06:16→16:53)
[2021-10-26] MEDS: Gabapentin 300 MG CAPSULE PO SCH ×2 (07:59→21:27)
[2021-10-26] MEDS: Lactobacillus 1 EACH CAP.SPRINK PO SCH ×2 (07:59→21:27)
[2021-10-26] MEDS: Insulin LISPRO 300 UNITS/3 ML VIAL SUBQ SCH ×4 (07:59→22:36)
[2021-10-26] MEDS: Aspirin Enteric Coated 81 MG Tablet PO SCH (08:00)
[2021-10-26] MEDS: carvediloL 6.25 MG TABLET PO SCH ×2 (08:00→16:53)
[2021-10-26] MEDS: Cyanocobalamin (B-12) 1,000 MCG TABLET PO SCH (08:00)
[2021-10-26] MEDS: *HR* Ticagrelor 90 MG TABLET PO SCH ×2 (08:00→21:27)
[2021-10-26] MEDS: amLODIPine 5 MG TABLET PO SCH (08:00)
[2021-10-26] MEDS: allopurinoL 100 MG TABLET PO SCH (08:00)
[2021-10-26] MEDS: Insulin DETEMIR 100 UNIT/ML X5UNITS SUBQ SCH ×2 (11:23→22:36)
[2021-10-26] MEDS: cefTRIAXone 1,000 MG in 0.9 % Sodium Chloride Mini Bag 100 ML IVP SCH (16:53)
[2021-10-26] MEDS ORDERED: Acetaminophen 325 MG TABLET PO ONE (19:52)
[2021-10-27] MEDS: Ondansetron 4 MG/2 ML VIAL IVP PRN (01:26)
[2021-10-27 01:42] LABS: Hematocrit 28.7 % (35.3-44.9); Hemoglobin 8.7 g/dL (11.5-15.4); Mean Corpuscular HGB Conc 30.3 g/dL (31.6-35.5); Mean Corpuscular Hemoglobin 30.4 pg (28.0-33.3); Mean Corpuscular Volume 100.3 fL (83.0-100.0); Mean Platelet Volume 10.4 fL (9.4-12.4); Platelet Count 125 K/mcL (140-400); Red Blood Count 2.86 M/mcL (3.82-4.97); Red Cell Distribution Width 15.2 % (11.5-14.5); White Blood Count 14.3 K/mcL (4.3-11.1)
[2021-10-27 02:02] LABS: Calcium 8.4 mg/dL (8.6-10.3); Potassium 3.8 mEq/L (3.5-5.1)
[2021-10-27] MEDS: *HR* Heparin 5,000 UNIT/ML VIAL SQ SCH ×2 (06:22→17:22)
[2021-10-27] MEDS: Cyanocobalamin (B-12) 1,000 MCG TABLET PO SCH (10:20)
[2021-10-27] MEDS: Aspirin Enteric Coated 81 MG Tablet PO SCH (10:20)
[2021-10-27] MEDS: allopurinoL 100 MG TABLET PO SCH (10:21)
[2021-10-27] MEDS: Lactobacillus 1 EACH CAP.SPRINK PO SCH (10:21)
[2021-10-27] MEDS: amLODIPine 5 MG TABLET PO SCH (10:21)
[2021-10-27] MEDS: *HR* Ticagrelor 90 MG TABLET PO SCH (10:21)
[2021-10-27] MEDS: Gabapentin 300 MG CAPSULE PO SCH (10:21)
[2021-10-27] MEDS: Insulin LISPRO 300 UNITS/3 ML VIAL SUBQ SCH ×3 (10:21→17:21)
[2021-10-27] MEDS: Insulin DETEMIR 100 UNIT/ML X5UNITS SUBQ SCH (10:22)
[2021-10-27] MEDS: carvediloL 6.25 MG TABLET PO SCH ×2 (10:24→17:21)
[2021-10-27 15:41] VITALS: BP 129/64; PULSE 84; TEMP 97.6; O2SAT 96
== END 2021-10-27 20:27 | disposition home or self-care (01) | DRG 175 ==
LOC: EMEROOARM 18:37 → 2ANU 18:37 → SUATTDRO 10-24 01:26 → 2ANU 10-24 02:54
PROVIDERS: ADMIT Student in an Organized Health Care Education/Training Program; ATTEND General Practice

== ENCOUNTER 2022-06-12 15:41 | Inpatient (IN) ==
[2022-06-12 19:59] LABS: Basophils # 0.1 K/mcL (0.0-0.2); Basophils % 0.3 %; Eosinophils # 0.3 K/mcL (0.0-0.6); Eosinophils % 1.5 %; Hematocrit 28.8 % (35.3-44.9); Hemoglobin 9.1 g/dL (11.5-15.4); Lymphocytes # 1.3 K/mcL (0.6-4.6); Lymphocytes % 7.5 %; Mean Corpuscular HGB Conc 31.6 g/dL (31.6-35.5); Mean Corpuscular Hemoglobin 31.7 pg (28.0-33.3); Mean Corpuscular Volume 100.3 fL (83.0-100.0); Mean Platelet Volume 10.3 fL (9.4-12.4); Monocytes # 0.8 K/mcL (0.0-1.3); Monocytes % 4.6 %; Neutrophils # 15.1 K/mcL (1.6-8.9); Platelet Count 169 K/mcL (140-400); Red Blood Count 2.87 M/mcL (3.82-4.97); Red Cell Distribution Width 16.2 % (11.5-14.5); Segmented Neutrophils % 84.1 %; White Blood Count 17.9 K/mcL (4.3-11.1)
[2022-06-12 20:20] LABS: Albumin 3.6 g/dL (3.5-5.7); Albumin/Globulin Ratio 1.1 (1.1-2.2); Bilirubin,Total 0.4 mg/dL (0.3-1.0); Calcium 8.6 mg/dL (8.6-10.3); Globulin 3.4 g/dL (2.4-3.5); Magnesium 2.7 mg/dL (1.6-2.6); Phosphorous 7.1 mg/dL (2.7-4.5); Potassium 4.2 mEq/L (3.5-5.1)
[2022-06-12] MEDS ORDERED: Naloxone 0.4 MG/ML INJ IVP PRN (21:26)
[2022-06-12] MEDS ORDERED: Acetaminophen 325 MG TABLET PO PRN (21:26)
[2022-06-12] MEDS ORDERED: Melatonin 3 MG TABLET PO PRN (21:26)
[2022-06-12] MEDS ORDERED: D5% in Water 1,000 ML IVC PRN (21:29)
[2022-06-12] MEDS ORDERED: *HR* Dextrose 50 % in Water (Syg) 50 ML SYRINGE IVP PRN (21:29)
[2022-06-12] MEDS ORDERED: Dextrose Gel 15 GM/37.5 ML TUBE PO PRN ×2 (21:29)
[2022-06-12 22:41] LABS: Hepatitis B Surface Antigen Nonreactive (Nonreactive)
[2022-06-12] MEDS: *HR* Ticagrelor 90 MG TABLET PO SCH (23:01)
[2022-06-12 23:03] LABS: Influenza A PCR Negative (Negative); Influenza B PCR Negative (Negative); Resp. Syncytial Virus PCR Negative (Negative)
[2022-06-12 23:10] LABS: Hepatitis C Virus Antibody Nonreactive (Nonreactive)
[2022-06-12 23:12] LABS: Hepatitis B Core IgM Nonreactive (Nonreactive)
[2022-06-12 23:12] LABS: SARS-CoV-2 by PCR (In House) Negative (Negative)
[2022-06-12 23:13] LABS: Hepatitis A Antibody IgM Nonreactive (Nonreactive)
[2022-06-13 03:03] LABS: Basophils # 0.1 K/mcL (0.0-0.2); Basophils % 0.4 %; Eosinophils # 0.4 K/mcL (0.0-0.6); Eosinophils % 2.6 %; Hematocrit 32.1 % (35.3-44.9); Hemoglobin 9.8 g/dL (11.5-15.4); Immature Granulocytes % 1.4 % (0-4); Lymphocytes # 2.1 K/mcL (0.6-4.6); Lymphocytes % 12.5 %; Mean Corpuscular HGB Conc 30.5 g/dL (31.6-35.5); Mean Corpuscular Hemoglobin 30.4 pg (28.0-33.3); Mean Corpuscular Volume 99.7 fL (83.0-100.0); Mean Platelet Volume 10.6 fL (9.4-12.4); Monocytes % 5.8 %; Platelet Count 203 K/mcL (140-400); Red Blood Count 3.22 M/mcL (3.82-4.97); Red Cell Distribution Width 16.2 % (11.5-14.5); Segmented Neutrophils % 77.3 %; White Blood Count 16.8 K/mcL (4.3-11.1)
[2022-06-13 03:14] LABS: INR 1.1; Prothrombin Time 12.6 Seconds (9.4-12.1)
[2022-06-13 03:27] LABS: Calcium 8.7 mg/dL (8.6-10.3); Phosphorous 6.6 mg/dL (2.7-4.5); Potassium 3.7 mEq/L (3.5-5.1)
[2022-06-13] MEDS: *HR* Heparin 5,000 UNIT/ML VIAL SQ SCH ×3 (06:32→21:54)
[2022-06-13] MEDS: Insulin DETEMIR 100 UNIT/ML X5UNITS SUBQ SCH ×2 (08:44→21:58)
[2022-06-13] MEDS: Insulin LISPRO 300 UNITS/3 ML VIAL SUBQ SCH ×3 (08:44→17:49)
[2022-06-13] MEDS: *HR* Ticagrelor 90 MG TABLET PO SCH ×2 (08:50→21:54)
[2022-06-13] MEDS ORDERED: 0.9 % Sodium Chloride 250 ML IVC PRN (12:59)
[2022-06-13] MEDS ORDERED: *HR* Heparin 10,000 UNIT/10 ML VIAL IV PRN (12:59)
[2022-06-13] MEDS ORDERED: 0.9 % Sodium Chloride 2,000 ML PRIME SCH (13:00)
[2022-06-13] MEDS: Ondansetron 4 MG/2 ML VIAL IVP PRN ×2 (13:23→21:54)
[2022-06-13] MEDS: Furosemide 40 MG TABLET PO SCH (18:37)
[2022-06-13] MEDS ORDERED: Insulin LISPRO 300 UNITS/3 ML VIAL SUBQ SCH (21:00)
[2022-06-14 04:26] VITALS: O2SAT 98
[2022-06-14] MEDS: *HR* Heparin 5,000 UNIT/ML VIAL SQ SCH (05:55)
[2022-06-14 07:33] VITALS: BP 122/53; PULSE 64; TEMP 98.2
[2022-06-14] MEDS: Insulin LISPRO 300 UNITS/3 ML VIAL SUBQ SCH (07:45)
[2022-06-14] MEDS: Ondansetron 4 MG/2 ML VIAL IVP PRN (07:51)
[2022-06-14] MEDS: Insulin DETEMIR 100 UNIT/ML X5UNITS SUBQ SCH (08:01)
[2022-06-14] MEDS: Furosemide 40 MG TABLET PO SCH (08:01)
[2022-06-14] MEDS: *HR* Ticagrelor 90 MG TABLET PO SCH (08:01)
[2022-06-14 08:37] LABS: Hematocrit 28.8 % (35.3-44.9); Hemoglobin 8.8 g/dL (11.5-15.4); Mean Corpuscular HGB Conc 30.6 g/dL (31.6-35.5); Mean Corpuscular Hemoglobin 30.8 pg (28.0-33.3); Mean Corpuscular Volume 100.7 fL (83.0-100.0); Mean Platelet Volume 10.3 fL (9.4-12.4); Platelet Count 164 K/mcL (140-400); Red Blood Count 2.86 M/mcL (3.82-4.97); Red Cell Distribution Width 16.7 % (11.5-14.5); White Blood Count 12.2 K/mcL (4.3-11.1)
[2022-06-14 08:40] LABS: Calcium 8.6 mg/dL (8.6-10.3); Potassium 3.7 mEq/L (3.5-5.1)
== END 2022-06-14 12:32 | disposition home or self-care (01) | DRG 291 ==
LOC: EMEROOARM 15:41 → 2ANU 15:41 → SUATTDRO 21:13 → 2ANU 21:58
PROVIDERS: ADMIT Internal Medicine; ATTEND Internal Medicine

== ENCOUNTER 2022-06-29 14:13 | Observation (INO) ==
[2022-06-29] MEDS ORDERED: Acetaminophen 325 MG TABLET PO PRN (18:08)
[2022-06-29] MEDS ORDERED: Naloxone 0.4 MG/ML INJ IVP PRN (18:08)
[2022-06-29] MEDS ORDERED: D5% in Water 1,000 ML IVC PRN (18:14)
[2022-06-29] MEDS ORDERED: Dextrose Gel 15 GM/37.5 ML TUBE PO PRN ×2 (18:14)
[2022-06-29] MEDS ORDERED: *HR* Dextrose 50 % in Water (Syg) 50 ML SYRINGE IVP PRN (18:14)
[2022-06-29] MEDS ORDERED: Vancomycin 1,500 MG/265 ML IV.SOLN IVPB SCH (19:00)
[2022-06-29] MEDS: Insulin LISPRO 300 UNITS/3 ML VIAL SUBQ SCH (21:22)
[2022-06-29 22:07] LABS: Magnesium 1.7 mg/dL (1.6-2.6); Troponin I 0.03 ng/mL (< 0.04)
[2022-06-29 22:08] LABS: Appearance of Peritoneal Fl CLEAR (Clear); RBC,Peritoneal Fluid < 2000 RBC/mcL
[2022-06-29 22:51] LABS: Basophils,Peritoneal Fluid 0 %; Eosinophils,Peritoneal Fluid 0 %
[2022-06-30 05:18] LABS: Basophils # 0.1 K/mcL (0.0-0.2); Basophils % 0.7 %; Eosinophils # 0.6 K/mcL (0.0-0.6); Eosinophils % 4.2 %; Hematocrit 29.4 % (35.3-44.9); Hemoglobin 9.2 g/dL (11.5-15.4); Immature Granulocytes % 2.8 % (0-4); Lymphocytes # 2.1 K/mcL (0.6-4.6); Lymphocytes % 15.6 %; Mean Corpuscular HGB Conc 31.3 g/dL (31.6-35.5); Mean Corpuscular Hemoglobin 30.8 pg (28.0-33.3); Mean Corpuscular Volume 98.3 fL (83.0-100.0); Mean Platelet Volume 10.3 fL (9.4-12.4); Monocytes # 1.3 K/mcL (0.0-1.3); Monocytes % 9.8 %; Neutrophils # 8.9 K/mcL (1.6-8.9); Platelet Count 190 K/mcL (140-400); Red Blood Count 2.99 M/mcL (3.82-4.97); Red Cell Distribution Width 15.6 % (11.5-14.5); Segmented Neutrophils % 66.9 %; White Blood Count 13.3 K/mcL (4.3-11.1)
[2022-06-30 05:48] LABS: Bilirubin,Total 0.3 mg/dL (0.3-1.0); Calcium 6.6 mg/dL (8.6-10.3); Globulin 3.1 g/dL (2.4-3.5); Potassium 4.6 mEq/L (3.5-5.1); Total Protein 6.1 g/dL (6.4-8.9)
[2022-06-30] MEDS: Gentamicin Oint 15 GM TUBE TP SCH (07:47)
[2022-06-30] MEDS ORDERED: *HR* Heparin 10,000 UNIT/10 ML VIAL IV PRN (08:35)
[2022-06-30] MEDS ORDERED: 0.9 % Sodium Chloride 250 ML IVC PRN (08:35)
[2022-06-30] MEDS: Insulin LISPRO 300 UNITS/3 ML VIAL SUBQ SCH ×4 (08:41→19:30)
[2022-06-30] MEDS: Pantoprazole 40 MG VIAL IVP SCH (08:42)
[2022-06-30] MEDS ORDERED: 0.9 % Sodium Chloride 2,000 ML PRIME SCH (08:45)
[2022-06-30] MEDS: Cefepime HCl 1,000 MG in 0.9 % Sodium Chloride 10 ML IVP SCH (08:45)
[2022-06-30] MEDS ORDERED: Ipratropium/Albuterol Neb 3 ML IH PRN (09:39)
[2022-07-01] MEDS: Ondansetron 4 MG/2 ML VIAL IVP PRN ×2 (00:14→06:23)
[2022-07-01 03:49] LABS: Basophils # 0.1 K/mcL (0.0-0.2); Basophils % 0.9 %; Eosinophils # 0.4 K/mcL (0.0-0.6); Eosinophils % 3.7 %; Hematocrit 28.9 % (35.3-44.9); Hemoglobin 9.2 g/dL (11.5-15.4); Immature Granulocytes % 2.7 % (0-4); Lymphocytes # 1.8 K/mcL (0.6-4.6); Lymphocytes % 15.7 %; Mean Corpuscular HGB Conc 31.8 g/dL (31.6-35.5); Mean Corpuscular Hemoglobin 31.1 pg (28.0-33.3); Mean Corpuscular Volume 97.6 fL (83.0-100.0); Mean Platelet Volume 9.8 fL (9.4-12.4); Monocytes # 1.3 K/mcL (0.0-1.3); Monocytes % 11.4 %; Neutrophils # 7.7 K/mcL (1.6-8.9); Platelet Count 156 K/mcL (140-400); Red Blood Count 2.96 M/mcL (3.82-4.97); Red Cell Distribution Width 15.5 % (11.5-14.5); Segmented Neutrophils % 65.6 %; White Blood Count 11.7 K/mcL (4.3-11.1)
[2022-07-01 04:07] LABS: Calcium 7.4 mg/dL (8.6-10.3); Potassium 4.5 mEq/L (3.5-5.1)
[2022-07-01] MEDS: Pantoprazole 40 MG VIAL IVP SCH (09:11)
[2022-07-01] MEDS: Cefepime HCl 1,000 MG in 0.9 % Sodium Chloride 10 ML IVP SCH (09:12)
[2022-07-01] MEDS: Insulin LISPRO 300 UNITS/3 ML VIAL SUBQ SCH (09:13)
[2022-07-01 11:33] VITALS: BP 99/39; PULSE 74; TEMP 99.3; O2SAT 100
[2022-07-01] MEDS: Gentamicin Oint 15 GM TUBE TP SCH (11:39)
== END 2022-07-01 02:40 | disposition home health service (06) ==
LOC: 3NENU
PROVIDERS: ADMIT Internal Medicine; ATTEND Internal Medicine

== ENCOUNTER 2022-07-08 20:48 | Observation (INO) ==
[2022-07-09] MEDS ORDERED: Naloxone 0.4 MG/ML INJ IVP PRN (00:24)
[2022-07-09] MEDS ORDERED: *HR* Dextrose 50 % in Water (Syg) 50 ML SYRINGE IVP PRN (02:28)
[2022-07-09] MEDS ORDERED: D5% in Water 1,000 ML IVC PRN (02:28)
[2022-07-09] MEDS ORDERED: Dextrose Gel 15 GM/37.5 ML TUBE PO PRN ×2 (02:28)
[2022-07-09] MEDS: Insulin LISPRO 300 UNITS/3 ML VIAL SUBQ SCH ×4 (07:25→23:00)
[2022-07-09] MEDS: *HR* Ticagrelor 90 MG TABLET PO SCH ×2 (07:58→22:59)
[2022-07-09] MEDS: Aspirin Enteric Coated 81 MG Tablet PO SCH (07:58)
[2022-07-09] MEDS: Gabapentin 300 MG CAPSULE PO SCH (07:58)
[2022-07-09 08:08] LABS: Basophils % 0.3 %; Eosinophils # 0.2 K/mcL (0.0-0.6); Eosinophils % 1.5 %; Hematocrit 28.1 % (35.3-44.9); Lymphocytes # 0.8 K/mcL (0.6-4.6); Lymphocytes % 6.5 %; Mean Corpuscular Hemoglobin 31.4 pg (28.0-33.3); Mean Corpuscular Volume 97.9 fL (83.0-100.0); Mean Platelet Volume 10.2 fL (9.4-12.4); Monocytes # 0.7 K/mcL (0.0-1.3); Monocytes % 6.1 %; Neutrophils # 10.2 K/mcL (1.6-8.9); Platelet Count 120 K/mcL (140-400); Red Blood Count 2.87 M/mcL (3.82-4.97); Red Cell Distribution Width 15.8 % (11.5-14.5); Segmented Neutrophils % 84.6 %
[2022-07-09 08:27] LABS: Calcium 6.3 mg/dL (8.6-10.3); Magnesium 1.9 mg/dL (1.6-2.6); Phosphorous 9.7 mg/dL (2.7-4.5); Potassium 4.7 mEq/L (3.5-5.1)
[2022-07-09] MEDS: Ondansetron 4 MG/2 ML VIAL IVP PRN (09:17)
[2022-07-09] MEDS ORDERED: Calcium Gluconate 1gm/50mL 1 GM/50 ML BAG IVPB ONE (13:30)
[2022-07-09] MEDS ORDERED: Perit. Dialysis with Dex 2.5 % 12,000 ML PERITONEAL ONE ×2 (14:00→19:00)
[2022-07-09 15:28] LABS: RBC,Peritoneal Fluid < 2000 RBC/mcL
[2022-07-09 15:29] LABS: Appearance of Peritoneal Fl CLEAR (Clear)
[2022-07-09] MEDS ORDERED: Magnesium Oxide 400 MG TABLET PO SCH (21:00)
[2022-07-09] MEDS: Gentamicin Oint 15 GM TUBE TP SCH (22:59)
[2022-07-09] MEDS: Acetaminophen 325 MG TABLET PO PRN (23:46)
[2022-07-10 03:39] LABS: Basophils % 0.4 %; Eosinophils # 0.4 K/mcL (0.0-0.6); Eosinophils % 3.5 %; Hematocrit 27.1 % (35.3-44.9); Hemoglobin 8.4 g/dL (11.5-15.4); Immature Granulocytes % 0.8 % (0-4); Lymphocytes # 1.8 K/mcL (0.6-4.6); Lymphocytes % 18.1 %; Mean Corpuscular Hemoglobin 30.7 pg (28.0-33.3); Mean Corpuscular Volume 98.9 fL (83.0-100.0); Mean Platelet Volume 10.2 fL (9.4-12.4); Monocytes # 1.1 K/mcL (0.0-1.3); Monocytes % 11.5 %; Neutrophils # 6.5 K/mcL (1.6-8.9); Platelet Count 124 K/mcL (140-400); Red Blood Count 2.74 M/mcL (3.82-4.97); Red Cell Distribution Width 15.9 % (11.5-14.5); Segmented Neutrophils % 65.7 %; White Blood Count 9.9 K/mcL (4.3-11.1)
[2022-07-10 04:14] LABS: Potassium 4.6 mEq/L (3.5-5.1)
[2022-07-10 04:15] LABS: Albumin 2.9 g/dL (3.5-5.7); Calcium 6.2 mg/dL (8.6-10.3)
[2022-07-10] MEDS: Insulin LISPRO 300 UNITS/3 ML VIAL SUBQ SCH ×4 (08:53→20:05)
[2022-07-10] MEDS: Gentamicin Oint 15 GM TUBE TP SCH ×2 (08:54→12:25)
[2022-07-10] MEDS: Gabapentin 300 MG CAPSULE PO SCH (08:59)
[2022-07-10] MEDS: Aspirin Enteric Coated 81 MG Tablet PO SCH (08:59)
[2022-07-10] MEDS: *HR* Ticagrelor 90 MG TABLET PO SCH ×2 (08:59→20:04)
[2022-07-10] MEDS ORDERED: Calcium Gluconate 1gm/50mL 1 GM/50 ML BAG IVPB ONE (11:17)
[2022-07-10] MEDS ORDERED: Perit. Dialysis with Dex 2.5 % 12,000 ML PERITONEAL ONE (12:00)
[2022-07-10] MEDS ORDERED: Vancomycin 2,000 MG/520 ML IV.SOLN IVPB ONE (16:00)
[2022-07-10] MEDS: Ondansetron 4 MG/2 ML VIAL IVP PRN (18:08)
[2022-07-10] MEDS: *HR* Heparin 5,000 UNIT/ML VIAL SQ SCH (22:02)
[2022-07-11] MEDS: Acetaminophen 325 MG TABLET PO PRN (03:33)
[2022-07-11] MEDS: *HR* Heparin 5,000 UNIT/ML VIAL SQ SCH (06:10)
[2022-07-11 06:27] VITALS: PULSE 68
[2022-07-11] MEDS: Insulin LISPRO 300 UNITS/3 ML VIAL SUBQ SCH (08:33)
[2022-07-11] MEDS: Aspirin Enteric Coated 81 MG Tablet PO SCH (08:34)
[2022-07-11] MEDS: Gabapentin 300 MG CAPSULE PO SCH (08:34)
[2022-07-11] MEDS: *HR* Ticagrelor 90 MG TABLET PO SCH (08:34)
[2022-07-11] MEDS: Ondansetron 4 MG/2 ML VIAL IVP PRN (08:40)
[2022-07-11 10:32] LABS: Basophils % 0.4 %; Eosinophils % 3.7 %; Hematocrit 29.7 % (35.3-44.9); Immature Granulocytes % 0.9 % (0-4); Mean Corpuscular Volume 99.7 fL (83.0-100.0); Mean Platelet Volume 10.3 fL (9.4-12.4); Red Blood Count 2.98 M/mcL (3.82-4.97); Red Cell Distribution Width 15.9 % (11.5-14.5)
[2022-07-11 10:34] LABS: Eosinophils # 0.4 K/mcL (0.0-0.6); Hemoglobin 9.2 g/dL (11.5-15.4); Immature Platelets 1.9 % (1.1-6.1); Lymphocytes # 1.3 K/mcL (0.6-4.6); Lymphocytes % 13.4 %; Mean Corpuscular Hemoglobin 30.9 pg (28.0-33.3); Monocytes # 1.1 K/mcL (0.0-1.3); Monocytes % 10.8 %; Platelet Count 121 K/mcL (140-400); Segmented Neutrophils % 70.8 %; White Blood Count 9.9 K/mcL (4.3-11.1)
[2022-07-11 10:42] LABS: Calcium 6.4 mg/dL (8.6-10.3); Potassium 5.1 mEq/L (3.5-5.1)
[2022-07-11 10:55] LABS: Platelet Estimate Slight Decrease (Normal)
[2022-07-11 11:33] VITALS: BP 108/67; TEMP 98; O2SAT 92
== END 2022-07-11 13:34 | disposition home or self-care (01) ==
LOC: 2ANU → SUATTDRO 07-09 00:12
PROVIDERS: ADMIT Internal Medicine; ATTEND Internal Medicine

== ENCOUNTER 2022-07-21 03:52 | Inpatient (IN) ==
[2022-07-21] MEDS ORDERED: Naloxone 0.4 MG/ML INJ IVP PRN (06:40)
[2022-07-21] MEDS ORDERED: Ipratropium/Albuterol Neb 3 ML IH PRN (06:43)
[2022-07-21] MEDS ORDERED: D5% in Water 1,000 ML IVC PRN (07:13)
[2022-07-21] MEDS ORDERED: Dextrose Gel 15 GM/37.5 ML TUBE PO PRN ×2 (07:13)
[2022-07-21] MEDS ORDERED: *HR* Dextrose 50 % in Water (Syg) 50 ML SYRINGE IVP PRN (07:13)
[2022-07-21] MEDS: Insulin LISPRO 300 UNITS/3 ML VIAL SUBQ SCH ×4 (09:19→19:42)
[2022-07-21] MEDS ORDERED: Nitroglycerin 0.4 MG TAB.SUBL SL PRN (10:04)
[2022-07-21 10:41] LABS: Amorphous Sediment,Urine Few per hpf (None-Few); Bacteria,Urine Few per hpf (None-Few); Bilirubin,Urine Negative (Negative); Blood,Urine Large (Negative); Clarity,Urine Turbid (Clear); Color,Urine Yellow (Yellow); Glucose,Urine (UA) Normal (Normal); Ketones,Urine Negative (Negative); Leukocyte Esterase,Urine Moderate (Negative); Mucus,Urine Few per lpf (None-Few); Nitrite,Urine Negative (Negative); Protein,Urine 100 mg/dL (Neg-Trace); RBC,Urine 50-100 per hpf (0-3); Specific Gravity,Urine 1.017 (1.010-1.025); Squamous Epithelial Cell,Urine Few per hpf (None-Few); Urobilinogen,Urine Normal (Normal); WBC,Urine 15-30 per hpf (0-3)
[2022-07-21] MEDS: Aspirin Enteric Coated 81 MG Tablet PO SCH (11:59)
[2022-07-21] MEDS: Gabapentin 300 MG CAPSULE PO SCH (11:59)
[2022-07-21] MEDS: allopurinoL 100 MG TABLET PO SCH (11:59)
[2022-07-21] MEDS: Isosorbide MONOnitrate (24 HR) 30 MG TAB.ER.24H PO SCH (11:59)
[2022-07-21] MEDS: Furosemide 40 MG TABLET PO SCH ×2 (11:59→17:21)
[2022-07-21] MEDS: *HR* Ticagrelor 90 MG TABLET PO SCH ×2 (11:59→19:52)
[2022-07-21] MEDS: Tiotropium 10 INH DOSE IH SCH (13:20)
[2022-07-21] MEDS: Acetaminophen 325 MG TABLET PO PRN (17:21)
[2022-07-21] MEDS ORDERED: Perit. Dialysis with Dex 2.5 % 12,000 ML PERITONEAL ONE (19:00)
[2022-07-21] MEDS: Ondansetron 4 MG/2 ML VIAL IVP PRN (20:03)
[2022-07-22] MEDS: Acetaminophen 325 MG TABLET PO PRN ×3 (06:54→22:02)
[2022-07-22] MEDS ORDERED: 0.9 % Sodium Chloride 500 ML IVC ONE (06:59)
[2022-07-22] MEDS: Gentamicin Oint 15 GM TUBE TP SCH ×2 (07:24→18:28)
[2022-07-22] MEDS: Tiotropium 10 INH DOSE IH SCH (07:52)
[2022-07-22] MEDS: Ondansetron 4 MG/2 ML VIAL IVP PRN ×2 (08:08→17:12)
[2022-07-22] MEDS: Insulin LISPRO 300 UNITS/3 ML VIAL SUBQ SCH ×4 (08:08→22:01)
[2022-07-22] MEDS: allopurinoL 100 MG TABLET PO SCH (08:09)
[2022-07-22] MEDS: Gabapentin 300 MG CAPSULE PO SCH (08:09)
[2022-07-22] MEDS: Cholecalciferol (D-3) 1,000 UNIT (25MCG) TABLET PO SCH (08:09)
[2022-07-22] MEDS: Aspirin Enteric Coated 81 MG Tablet PO SCH (08:09)
[2022-07-22] MEDS: Furosemide 40 MG TABLET PO SCH ×2 (08:10→16:27)
[2022-07-22] MEDS: Cyanocobalamin (B-12) 1,000 MCG TABLET PO SCH (08:10)
[2022-07-22] MEDS: Isosorbide MONOnitrate (24 HR) 30 MG TAB.ER.24H PO SCH (08:10)
[2022-07-22] MEDS: *HR* Ticagrelor 90 MG TABLET PO SCH ×2 (08:10→21:55)
[2022-07-22 11:15] LABS: RBC,Peritoneal Fluid < 2000 RBC/mcL
[2022-07-22 12:10] LABS: Eosinophils,Peritoneal Fluid 0 %
[2022-07-22 12:11] LABS: Basophils,Peritoneal Fluid 0 %
[2022-07-22 12:13] LABS: Appearance of Peritoneal Fl HAZY (Clear)
[2022-07-22] MEDS ORDERED: cefTRIAXone 1,000 MG in 0.9 % Sodium Chloride 10 ML IVP SCH (13:00)
[2022-07-22 13:33] LABS: Basophils % 0.2 %; Hemoglobin 8.5 g/dL (11.5-15.4); Immature Granulocytes % 0.9 % (0-4); Lymphocytes # 0.8 K/mcL (0.6-4.6); Lymphocytes % 7.7 %; Mean Corpuscular HGB Conc 30.4 g/dL (31.6-35.5); Mean Corpuscular Hemoglobin 30.8 pg (28.0-33.3); Mean Corpuscular Volume 101.4 fL (83.0-100.0); Mean Platelet Volume 10.1 fL (9.4-12.4); Monocytes # 0.7 K/mcL (0.0-1.3); Monocytes % 7.1 %; Neutrophils # 8.8 K/mcL (1.6-8.9); Platelet Count 148 K/mcL (140-400); Red Blood Count 2.76 M/mcL (3.82-4.97); Red Cell Distribution Width 15.1 % (11.5-14.5); Segmented Neutrophils % 84.1 %; White Blood Count 10.4 K/mcL (4.3-11.1)
[2022-07-22 13:44] LABS: INR 1.4; Prothrombin Time 16.1 Seconds (9.4-12.1)
[2022-07-22 13:58] LABS: Troponin I 2.98 ng/mL (< 0.04)
[2022-07-22 13:59] LABS: Alanine Aminotransferase 12 Units/L (7-52); Albumin/Globulin Ratio 0.8 (1.1-2.2); Alkaline Phosphatase 77 Units/L (34-104); Aspartate Amino Transferase 19 Units/L (13-39); BUN/Creatinine Ratio 8 (6-26); Bilirubin,Direct 0.1 mg/dL (0.0-0.2); Bilirubin,Indirect 0.3 mg/dL (0.0-1.0); Bilirubin,Total 0.4 mg/dL (0.3-1.0); Blood Urea Nitrogen 55 mg/dL (8-23); Calcium 7.1 mg/dL (8.6-10.3); Carbon Dioxide 27 mEq/L (23-29); Chloride 94 mEq/L (98-107); Globulin 3.6 g/dL (2.4-3.5); Glucose 115 mg/dL (70-105); Lactate Dehydrogenase 282 Units/L (140-271); Magnesium 1.7 mg/dL (1.6-2.6); Osmolality,Calculated 296 (280-300); Phosphorous 6.4 mg/dL (2.7-4.5); Potassium 4.3 mEq/L (3.5-5.1); Sodium 135 mEq/L (136-145); Total Protein 6.6 g/dL (6.4-8.9)
[2022-07-22 14:23] LABS: C-Reactive Protein > 300 mg/L (Less than 10); Ferritin > 1500 ng/mL (10-120)
[2022-07-22] MEDS ORDERED: *HR* Heparin 5,000 UNIT/ML VIAL IVP PRN ×2 (15:29)
[2022-07-22] MEDS ORDERED: *HR* Heparin 5,000 UNIT/ML VIAL IVP ONE (15:29)
[2022-07-22] MEDS ORDERED: Vancomycin 1 EACH in 0.9 % Sodium Chloride 250 ML IVPB PRN (16:00)
[2022-07-22] MEDS: Heparin 25,000UNIT/250ML 1/2NS 25,000 UNIT/250 ML IV.SOLN IVC SCH (16:29)
[2022-07-22] MEDS ORDERED: Vancomycin 1,750 MG/517.5 ML IV.SOLN IVPB ONE (17:00)
[2022-07-22] MEDS: Cefepime HCl 1,000 MG in 0.9 % Sodium Chloride Mini Bag 100 ML IVPB SCH (17:12)
[2022-07-22] MEDS ORDERED: Perit. Dialysis with Dex 2.5 % 12,000 ML PERITONEAL ONE (18:00)
[2022-07-22 18:08] LABS: Heparin anti-factor XA UFH 0.73 IU/mL (0.30-0.70); INR 1.4; Prothrombin Time 15.9 Seconds (9.4-12.1)
[2022-07-22] MEDS ORDERED: Insulin DETEMIR 100 UNIT/ML X5UNITS SUBQ SCH (21:00)
[2022-07-22] MEDS: Insulin DETEMIR 100 UNIT/ML X5UNITS SUBQ SCH (22:01)
[2022-07-23] MEDS: Tiotropium 10 INH DOSE IH SCH (07:34)
[2022-07-23 09:33] LABS: Basophils % 0.2 %; Eosinophils % 0.1 %; Hematocrit 27.8 % (35.3-44.9); Hemoglobin 8.4 g/dL (11.5-15.4); Immature Granulocytes % 0.7 % (0-4); Lymphocytes # 0.9 K/mcL (0.6-4.6); Lymphocytes % 9.7 %; Mean Corpuscular HGB Conc 30.2 g/dL (31.6-35.5); Mean Corpuscular Hemoglobin 30.4 pg (28.0-33.3); Mean Corpuscular Volume 100.7 fL (83.0-100.0); Mean Platelet Volume 9.9 fL (9.4-12.4); Monocytes # 0.6 K/mcL (0.0-1.3); Monocytes % 6.3 %; Neutrophils # 7.7 K/mcL (1.6-8.9); Platelet Count 165 K/mcL (140-400); Red Blood Count 2.76 M/mcL (3.82-4.97); Red Cell Distribution Width 15.2 % (11.5-14.5); White Blood Count 9.3 K/mcL (4.3-11.1)
[2022-07-23] MEDS: Furosemide 40 MG TABLET PO SCH ×2 (09:36→16:32)
[2022-07-23] MEDS: *HR* Ticagrelor 90 MG TABLET PO SCH ×2 (09:36→21:12)
[2022-07-23] MEDS: Gabapentin 300 MG CAPSULE PO SCH (09:37)
[2022-07-23] MEDS: Aspirin Enteric Coated 81 MG Tablet PO SCH (09:37)
[2022-07-23] MEDS: allopurinoL 100 MG TABLET PO SCH (09:37)
[2022-07-23] MEDS: Cyanocobalamin (B-12) 1,000 MCG TABLET PO SCH (09:37)
[2022-07-23] MEDS: Insulin DETEMIR 100 UNIT/ML X5UNITS SUBQ SCH ×2 (09:44→23:06)
[2022-07-23] MEDS: Cholecalciferol (D-3) 1,000 UNIT (25MCG) TABLET PO SCH (09:44)
[2022-07-23] MEDS: Insulin LISPRO 300 UNITS/3 ML VIAL SUBQ SCH ×4 (09:44→21:16)
[2022-07-23 09:50] LABS: Albumin 2.7 g/dL (3.5-5.7); Albumin/Globulin Ratio 0.8 (1.1-2.2); Bilirubin,Total 0.3 mg/dL (0.3-1.0); Calcium 7.1 mg/dL (8.6-10.3); Globulin 3.6 g/dL (2.4-3.5); Potassium 4.1 mEq/L (3.5-5.1); Total Protein 6.3 g/dL (6.4-8.9); Troponin I 2.17 ng/mL (< 0.04)
[2022-07-23] MEDS: Isosorbide MONOnitrate (24 HR) 60 MG TAB.ER.24H PO SCH (12:07)
[2022-07-23] MEDS: Acetaminophen 325 MG TABLET PO PRN (12:07)
[2022-07-23] MEDS: Isosorbide MONOnitrate (24 HR) 30 MG TAB.ER.24H PO SCH (12:32)
[2022-07-23] MEDS ORDERED: Darbepoetin 25 MCG/0.42 ML SYRINGE SQ SCH (13:00)
[2022-07-23 13:41] LABS: % Iron Saturation 22 % (15-50); Iron 31 mcg/dL (50-170); Transferrin 101 mg/dL (203-362)
[2022-07-23 14:45] LABS: Folate 11.2 ng/mL (3.0-16.0); Vitamin B12 > 1500 pg/mL (250-1100)
[2022-07-23] MEDS: Cefepime HCl 1,000 MG in 0.9 % Sodium Chloride Mini Bag 100 ML IVPB SCH (16:31)
[2022-07-23] MEDS: Cefepime HCl 1,000 MG in 0.9 % Sodium Chloride 10 ML IVP SCH (16:41)
[2022-07-23] MEDS ORDERED: Perit. Dialysis with Dex 2.5 % 12,000 ML PERITONEAL ONE (19:00)
[2022-07-23] MEDS: Gentamicin Oint 15 GM TUBE TP SCH (20:17)
[2022-07-23] MEDS: Ondansetron 4 MG/2 ML VIAL IVP PRN (21:12)
[2022-07-23] MEDS: Heparin 25,000UNIT/250ML 1/2NS 25,000 UNIT/250 ML IV.SOLN IVC SCH (23:04)
[2022-07-24] MEDS ORDERED: *HR* HYDROmorphone (PF) 1 MG/ML SYRINGE IVP ONE (00:36)
[2022-07-24] MEDS ORDERED: *HR* Metoprolol 5 MG/5 ML VIAL IVP ONE (01:19)
[2022-07-24] MEDS: Tiotropium 10 INH DOSE IH SCH (07:19)
[2022-07-24] MEDS: Insulin LISPRO 300 UNITS/3 ML VIAL SUBQ SCH ×4 (08:26→21:09)
[2022-07-24] MEDS: Aspirin Enteric Coated 81 MG Tablet PO SCH (08:36)
[2022-07-24] MEDS: Isosorbide MONOnitrate (24 HR) 60 MG TAB.ER.24H PO SCH (08:36)
[2022-07-24] MEDS: Furosemide 40 MG TABLET PO SCH ×2 (08:37→17:10)
[2022-07-24] MEDS: Cyanocobalamin (B-12) 1,000 MCG TABLET PO SCH (08:37)
[2022-07-24] MEDS: allopurinoL 100 MG TABLET PO SCH (08:37)
[2022-07-24] MEDS: *HR* Ticagrelor 90 MG TABLET PO SCH ×2 (08:37→21:08)
[2022-07-24] MEDS: Gabapentin 300 MG CAPSULE PO SCH (08:37)
[2022-07-24] MEDS: Cholecalciferol (D-3) 1,000 UNIT (25MCG) TABLET PO SCH (08:38)
[2022-07-24] MEDS: Insulin DETEMIR 100 UNIT/ML X5UNITS SUBQ SCH ×2 (09:24→21:08)
[2022-07-24 11:54] LABS: Basophils % 0.1 %; Hematocrit 28.6 % (35.3-44.9); Hemoglobin 8.5 g/dL (11.5-15.4); Lymphocytes # 0.5 K/mcL (0.6-4.6); Lymphocytes % 5.1 %; Mean Corpuscular HGB Conc 29.7 g/dL (31.6-35.5); Mean Corpuscular Hemoglobin 29.9 pg (28.0-33.3); Mean Corpuscular Volume 100.7 fL (83.0-100.0); Mean Platelet Volume 10.1 fL (9.4-12.4); Monocytes # 0.4 K/mcL (0.0-1.3); Neutrophils # 8.2 K/mcL (1.6-8.9); Platelet Count 219 K/mcL (140-400); Red Blood Count 2.84 M/mcL (3.82-4.97); Red Cell Distribution Width 14.6 % (11.5-14.5); Segmented Neutrophils % 89.8 %; White Blood Count 9.2 K/mcL (4.3-11.1)
[2022-07-24 12:13] LABS: Albumin/Globulin Ratio 0.8 (1.1-2.2); Bilirubin,Total 0.3 mg/dL (0.3-1.0); Calcium 7.5 mg/dL (8.6-10.3); Globulin 3.7 g/dL (2.4-3.5); Potassium 3.8 mEq/L (3.5-5.1); Total Protein 6.7 g/dL (6.4-8.9)
[2022-07-24] MEDS: Ondansetron 4 MG/2 ML VIAL IVP PRN (14:41)
[2022-07-24] MEDS: Cefepime HCl 1,000 MG in 0.9 % Sodium Chloride 10 ML IVP SCH (17:09)
[2022-07-24] MEDS: *HR* Heparin 5,000 UNIT/ML VIAL SQ SCH (17:12)
[2022-07-24] MEDS: Gentamicin Oint 15 GM TUBE TP SCH (18:43)
[2022-07-24] MEDS ORDERED: Perit. Dialysis with Dex 2.5 % 12,000 ML PERITONEAL ONE (19:00)
[2022-07-25 03:39] LABS: Basophils % 0.1 %; Hematocrit 25.8 % (35.3-44.9); Hemoglobin 7.9 g/dL (11.5-15.4); Immature Granulocytes % 1.4 % (0-4); Lymphocytes # 0.5 K/mcL (0.6-4.6); Lymphocytes % 5.1 %; Mean Corpuscular HGB Conc 30.6 g/dL (31.6-35.5); Mean Corpuscular Hemoglobin 30.5 pg (28.0-33.3); Mean Corpuscular Volume 99.6 fL (83.0-100.0); Mean Platelet Volume 10.2 fL (9.4-12.4); Monocytes # 0.5 K/mcL (0.0-1.3); Monocytes % 5.3 %; Neutrophils # 7.9 K/mcL (1.6-8.9); Platelet Count 209 K/mcL (140-400); Red Blood Count 2.59 M/mcL (3.82-4.97); Red Cell Distribution Width 14.2 % (11.5-14.5); Segmented Neutrophils % 88.1 %
[2022-07-25 03:56] LABS: Albumin 2.6 g/dL (3.5-5.7); Albumin/Globulin Ratio 0.8 (1.1-2.2); Bilirubin,Total 0.3 mg/dL (0.3-1.0); Calcium 7.2 mg/dL (8.6-10.3); Globulin 3.4 g/dL (2.4-3.5); Potassium 3.5 mEq/L (3.5-5.1)
[2022-07-25] MEDS: *HR* Heparin 5,000 UNIT/ML VIAL SQ SCH ×2 (06:35→18:30)
[2022-07-25] MEDS: Tiotropium 10 INH DOSE IH SCH (07:58)
[2022-07-25] MEDS: Insulin LISPRO 300 UNITS/3 ML VIAL SUBQ SCH ×4 (09:18→22:00)
[2022-07-25] MEDS: Cyanocobalamin (B-12) 1,000 MCG TABLET PO SCH (09:19)
[2022-07-25] MEDS: Aspirin Enteric Coated 81 MG Tablet PO SCH (09:19)
[2022-07-25] MEDS: *HR* Ticagrelor 90 MG TABLET PO SCH ×2 (09:19→21:58)
[2022-07-25] MEDS: Furosemide 40 MG TABLET PO SCH ×2 (09:19→18:29)
[2022-07-25] MEDS: allopurinoL 100 MG TABLET PO SCH (09:19)
[2022-07-25] MEDS: Cholecalciferol (D-3) 1,000 UNIT (25MCG) TABLET PO SCH (09:20)
[2022-07-25] MEDS: Isosorbide MONOnitrate (24 HR) 60 MG TAB.ER.24H PO SCH (09:20)
[2022-07-25] MEDS: Gabapentin 300 MG CAPSULE PO SCH (09:20)
[2022-07-25] MEDS: Insulin DETEMIR 100 UNIT/ML X5UNITS SUBQ SCH ×2 (09:25→22:01)
[2022-07-25] MEDS ORDERED: Perit. Dialysis with Dex 2.5 % 12,000 ML PERITONEAL ONE (17:00)
[2022-07-25] MEDS: Gentamicin Oint 15 GM TUBE TP SCH (17:03)
[2022-07-25] MEDS: Benzonatate 100 MG CAPSULE PO PRN (18:28)
[2022-07-25] MEDS: Cefepime HCl 1,000 MG in 0.9 % Sodium Chloride 10 ML IVP SCH (18:30)
[2022-07-25] MEDS: Ondansetron 4 MG/2 ML VIAL IVP PRN (18:38)
[2022-07-26] MEDS: *HR* Heparin 5,000 UNIT/ML VIAL SQ SCH ×2 (06:18→18:16)
[2022-07-26] MEDS: Tiotropium 10 INH DOSE IH SCH (07:51)
[2022-07-26] MEDS: Gabapentin 300 MG CAPSULE PO SCH (09:06)
[2022-07-26] MEDS: Isosorbide MONOnitrate (24 HR) 60 MG TAB.ER.24H PO SCH (09:06)
[2022-07-26] MEDS: Insulin DETEMIR 100 UNIT/ML X5UNITS SUBQ SCH ×2 (09:06→21:00)
[2022-07-26] MEDS: Furosemide 40 MG TABLET PO SCH ×2 (09:07→18:16)
[2022-07-26] MEDS: allopurinoL 100 MG TABLET PO SCH (09:08)
[2022-07-26] MEDS: *HR* Ticagrelor 90 MG TABLET PO SCH ×2 (09:08→21:00)
[2022-07-26] MEDS: Aspirin Enteric Coated 81 MG Tablet PO SCH (09:08)
[2022-07-26] MEDS: Cholecalciferol (D-3) 1,000 UNIT (25MCG) TABLET PO SCH (09:09)
[2022-07-26] MEDS: Cyanocobalamin (B-12) 1,000 MCG TABLET PO SCH (09:09)
[2022-07-26] MEDS: Insulin LISPRO 300 UNITS/3 ML VIAL SUBQ SCH ×4 (09:11→21:00)
[2022-07-26 14:04] LABS: Basophils % 0.3 %; Hematocrit 27.8 % (35.3-44.9); Hemoglobin 8.6 g/dL (11.5-15.4); Immature Granulocytes % 1.9 % (0-4); Lymphocytes # 0.3 K/mcL (0.6-4.6); Lymphocytes % 1.9 %; Mean Corpuscular HGB Conc 30.9 g/dL (31.6-35.5); Mean Corpuscular Hemoglobin 30.6 pg (28.0-33.3); Mean Corpuscular Volume 98.9 fL (83.0-100.0); Mean Platelet Volume 9.7 fL (9.4-12.4); Monocytes # 0.5 K/mcL (0.0-1.3); Monocytes % 3.1 %; Platelet Count 260 K/mcL (140-400); Red Blood Count 2.81 M/mcL (3.82-4.97); Red Cell Distribution Width 13.7 % (11.5-14.5); Segmented Neutrophils % 92.8 %
[2022-07-26 14:05] LABS: Basophils # 0.1 K/mcL (0.0-0.2); White Blood Count 15.1 K/mcL (4.3-11.1)
[2022-07-26 14:27] LABS: Potassium 3.5 mEq/L (3.5-5.1)
[2022-07-26] MEDS: Cefepime HCl 1,000 MG in 0.9 % Sodium Chloride 10 ML IVP SCH (18:17)
[2022-07-26] MEDS: Benzonatate 100 MG CAPSULE PO PRN (19:08)
[2022-07-26] MEDS ORDERED: Perit. Dialysis with Dex 2.5 % 12,000 ML PERITONEAL ONE (19:30)
[2022-07-26] MEDS: Gentamicin Oint 15 GM TUBE TP SCH (20:31)
[2022-07-26] MEDS: Ondansetron ODT 4 MG TAB.RAPDIS SL PRN (22:14)
[2022-07-27 05:21] LABS: Basophils # 0.1 K/mcL (0.0-0.2); Basophils % 0.4 %; Hematocrit 27.7 % (35.3-44.9); Hemoglobin 8.8 g/dL (11.5-15.4); Immature Granulocytes % 2.7 % (0-4); Lymphocytes # 0.5 K/mcL (0.6-4.6); Lymphocytes % 3.1 %; Mean Corpuscular HGB Conc 31.8 g/dL (31.6-35.5); Mean Corpuscular Hemoglobin 30.9 pg (28.0-33.3); Mean Corpuscular Volume 97.2 fL (83.0-100.0); Mean Platelet Volume 9.9 fL (9.4-12.4); Monocytes # 0.9 K/mcL (0.0-1.3); Monocytes % 5.5 %; Neutrophils # 14.4 K/mcL (1.6-8.9); Platelet Count 280 K/mcL (140-400); Red Blood Count 2.85 M/mcL (3.82-4.97); Red Cell Distribution Width 13.8 % (11.5-14.5); Segmented Neutrophils % 88.3 %; White Blood Count 16.3 K/mcL (4.3-11.1)
[2022-07-27 05:40] LABS: Calcium 7.2 mg/dL (8.6-10.3); Potassium 3.4 mEq/L (3.5-5.1)
[2022-07-27] MEDS: Benzonatate 100 MG CAPSULE PO PRN (05:44)
[2022-07-27] MEDS: *HR* Heparin 5,000 UNIT/ML VIAL SQ SCH ×3 (05:45→20:30)
[2022-07-27] MEDS ORDERED: *HR* Alteplase (Cathflo) 2 MG VIAL IVP ONE (09:11)
[2022-07-27] MEDS: Isosorbide MONOnitrate (24 HR) 60 MG TAB.ER.24H PO SCH (09:35)
[2022-07-27] MEDS: Cyanocobalamin (B-12) 1,000 MCG TABLET PO SCH (09:35)
[2022-07-27] MEDS: Furosemide 40 MG TABLET PO SCH ×2 (09:35→16:29)
[2022-07-27] MEDS: *HR* Ticagrelor 90 MG TABLET PO SCH ×2 (09:36→20:29)
[2022-07-27] MEDS: Gabapentin 300 MG CAPSULE PO SCH (09:36)
[2022-07-27] MEDS: allopurinoL 100 MG TABLET PO SCH (09:36)
[2022-07-27] MEDS: Cholecalciferol (D-3) 1,000 UNIT (25MCG) TABLET PO SCH (09:36)
[2022-07-27] MEDS: Aspirin Enteric Coated 81 MG Tablet PO SCH (09:38)
[2022-07-27] MEDS: Insulin DETEMIR 100 UNIT/ML X5UNITS SUBQ SCH ×2 (09:39→20:30)
[2022-07-27] MEDS: Insulin LISPRO 300 UNITS/3 ML VIAL SUBQ SCH ×4 (09:39→20:30)
[2022-07-27] MEDS: Tiotropium 10 INH DOSE IH SCH (10:38)
[2022-07-27] MEDS: Cefepime HCl 1,000 MG in 0.9 % Sodium Chloride 10 ML IVP SCH (16:29)
[2022-07-27] MEDS: Ondansetron ODT 4 MG TAB.RAPDIS SL PRN (16:29)
[2022-07-27] MEDS: carvediloL 6.25 MG TABLET PO SCH (16:29)
[2022-07-27] MEDS ORDERED: Perit. Dialysis with Dex 2.5 % 12,000 ML PERITONEAL ONE (19:00)
[2022-07-27 19:01] VITALS: O2SAT 100
[2022-07-27] MEDS: Gentamicin Oint 15 GM TUBE TP SCH (21:24)
[2022-07-28] MEDS: Benzonatate 100 MG CAPSULE PO PRN (02:39)
[2022-07-28] MEDS: *HR* Heparin 5,000 UNIT/ML VIAL SQ SCH ×2 (05:15→14:43)
[2022-07-28] MEDS: Tiotropium 10 INH DOSE IH SCH (07:50)
[2022-07-28] MEDS: Cholecalciferol (D-3) 1,000 UNIT (25MCG) TABLET PO SCH (08:27)
[2022-07-28] MEDS: Furosemide 40 MG TABLET PO SCH (08:30)
[2022-07-28] MEDS: *HR* Ticagrelor 90 MG TABLET PO SCH (08:30)
[2022-07-28] MEDS: Isosorbide MONOnitrate (24 HR) 60 MG TAB.ER.24H PO SCH (08:30)
[2022-07-28] MEDS: carvediloL 6.25 MG TABLET PO SCH (08:30)
[2022-07-28] MEDS: allopurinoL 100 MG TABLET PO SCH (08:30)
[2022-07-28] MEDS: Aspirin Enteric Coated 81 MG Tablet PO SCH (08:31)
[2022-07-28] MEDS: Insulin LISPRO 300 UNITS/3 ML VIAL SUBQ SCH ×2 (08:31→11:41)
[2022-07-28] MEDS: Gabapentin 300 MG CAPSULE PO SCH (08:31)
[2022-07-28] MEDS: Cyanocobalamin (B-12) 1,000 MCG TABLET PO SCH (08:31)
[2022-07-28] MEDS: Insulin DETEMIR 100 UNIT/ML X5UNITS SUBQ SCH (08:57)
[2022-07-28] MEDS ORDERED: Isosorbide MONOnitrate (24 HR) 30 MG TAB.ER.24H PO ONE (11:40)
[2022-07-28] MEDS: Ondansetron ODT 4 MG TAB.RAPDIS SL PRN (12:15)
[2022-07-28] MEDS ORDERED: Cefepime HCl 1,000 MG in 0.9 % Sodium Chloride 10 ML IVP SCH (14:00)
[2022-07-28 15:37] VITALS: BP 105/42; PULSE 71; TEMP 98.2
[2022-07-28] MEDS ORDERED: carvediloL 6.25 MG TABLET PO SCH (17:00)
[2022-07-29] MEDS ORDERED: Isosorbide MONOnitrate (24 HR) 60 MG TAB.ER.24H PO SCH (09:00)
== END 2022-07-28 17:01 | disposition home health service (06) | DRG 919 ==
LOC: 2ANU → SUATTDRO 06:40 → 2ANU 15:30
PROVIDERS: ADMIT Internal Medicine; ATTEND Family Medicine